=== PATIENT | female | born 1965 | race Caucasian/White ===

== ENCOUNTER → 2018-09-24 10:29 | Outpatient (CLI) | payer OTHER, SELFPAY ==
--- NOTE | 2018-09-24 10:30 | MM_ITS ---
MM Dig screening mamm BI w/CAD CAD Screening COMPARISON: Digital mammograms with CAD 02/14/2016 and 09/07/2014 INDICATION: There is no personal or family history of breast cancer TECHNIQUE: Standard CC and MLO images were obtained. R2 CAD reviewed. FINDINGS: Scattered fibroglandular densities are seen throughout both breast on a background of fatty breast parenchyma. There are few scattered benign-appearing microcalcifications in each breast. There is no suspicious lesion and there are no suspicious microcalcifications. IMPRESSION: Fibrofatty parenchyma no suspicious lesion seen BI-RADS Category: 2 Benign Finding(s) RECOMMENDED FOLLOW-UP: 1YR - 1 YEAR FOLLOW-UP (A letter has been sent to the patient regarding results of the study.)
== END ==
PROVIDERS: PCP Family Medicine; Visit Provider Obstetrics & Gynecology
DX: Z12.31 Encounter for screening mammogram for malignant neoplasm of breast (principal)
CPT/HCPCS: 77067

== ENCOUNTER → 2019-05-15 12:30 | Outpatient (CLI) | payer BC, SELFPAY ==
--- NOTE | 2019-05-15 12:34 | XR_ITS ---
XR elbow RT min 3V HISTORY: ITS.REASON: RT ELBOW PAIN ORDERING PHYSICIAN: Yareli Phelps APRN PATIENT AGE: 54 years COMPARISON: None FINDINGS: BONY STRUCTURES: No fracture or dislocation. No lytic or blastic change. Normal mineralization. SOFT TISSUES: Unremarkable. No radio opaque foreign bodies. No displaced fat pad. JOINT SPACE: Well-preserved. No significant arthritic changes evident. IMPRESSION: Negative elbow.
== END ==
PROVIDERS: PCP Nurse Practitioner Family; Visit Provider Nurse Practitioner Family
DX: M25.521 Pain in right elbow (principal)
CPT/HCPCS: 73080

== ENCOUNTER → 2020-01-01 09:54 | Outpatient (CLI) | payer BC, SELFPAY ==
--- NOTE | 2020-01-01 09:55 | MM_ITS ---
PROCEDURE: MM DIG SCREENING MAMM BI W/CAD CLINICAL INDICATION: screening xmg There is no personal or family history of breast cancer COMPARISON: [facility] DIG MAMM-SCREEN KEY from 09/07/2014 [facility] DIG MAMM-SCREEN KEY from 02/14/2016 [facility] MM Dig screening mamm BI w/CAD from 09/24/2018 TECHNIQUE: Standard CC and MLO images and 3D Tomosynthesis was obtained. R2 CAD reviewed. FINDINGS: The breasts are composed primarily of fat with scattered fibroglandular densities throughout both breasts and the findings are bilateral and symmetrical. There are few scattered benign-appearing microcalcifications in each breast. There is scattered faint arterial calcification in each breast. There is a tiny smoothly marginated density upper-outer quadrant right breast best demonstrated on paul images and likely representing a microcyst. There is no suspicious lesion and no suspicious microcalcifications. IMPRESSION: Fibrofatty parenchyma with no suspicious lesions seen BI-RAD Category: 2 Benign Finding(s) FOLLOW-UP: 1YR 1 Year Follow-up (A letter has been sent to the patient regarding results of the study.) Dictated by: Dr. Himanshu Lei MD 01/03/2020 09:[address] Himanshu Lei MD in [place] 01/03/2020 09:22
== END ==
PROVIDERS: PCP Nurse Practitioner Family; Visit Provider Nurse Practitioner Obstetrics & Gynecology
DX: Z12.31 Encounter for screening mammogram for malignant neoplasm of breast (principal)
CPT/HCPCS: 77063; 77067

== ENCOUNTER → 2020-04-02 11:21 | Outpatient (CLI) | payer BC, SELFPAY ==
--- NOTE | 2020-04-02 11:27 | XR_ITS ---
PROCEDURE: XR FOOT LT MIN 3V Patient Age:54Y CLINICAL INDICATION: LEFT FOOT PAIN , PLANTAR FASCIITIS Pain with walking or being on foot all day. COMPARISON: No exams were available for comparison No previous FINDINGS: Left foot intact no fracture or dislocation. No lytic or blastic change. There is normal mineralization.. The toes appear intact. The joint spaces are well-preserved. No significant degenerative/arthritic changes. No erosive changes evident. The lateral view shows satisfactory appearance to the calcaneus. No plantar calcaneal spur. No soft tissue calcifications or foreign bodies evident with particular attention to the plantar aspect of foot. . Adequate plantar arch. Joint spaces well maintained at the tarsals and throughout the foot, normal relationships. IMPRESSION: Left foot intact. The No fracture. No acute findings No calcaneal spur. No radiographic findings along the plantar aspect foot/plantar fascia Dictated by: Red Carrion MD 04/04/2020 08:23 Electronically signed by Red Carrion MD in [place] 04/04/2020 08:23
== END ==
PROVIDERS: PCP Nurse Practitioner Family; Visit Provider Nurse Practitioner Family
DX: M79.672 Pain in left foot (principal); M72.2 Plantar fascial fibromatosis
CPT/HCPCS: 73630

== ENCOUNTER → 2020-06-16 07:19 | Outpatient (CLI) | payer BC, SELFPAY ==
[2020-06-16 11:25] LABS: Coronavirus 19 IgG Antibody Negative (Negative); Coronavirus 19 IgM Antibody Negative (Negative)
== END ==
PROVIDERS: Visit Provider Internal Medicine Gastroenterology
DX: Z01.818 Encounter for other preprocedural examination (principal); Z12.11 Encounter for screening for malignant neoplasm of colon
CPT/HCPCS: 36415; 86328

== ENCOUNTER 2020-06-17 07:17 | Day surgery (SDC) | payer BC, SELFPAY ==
[2020-06-09 14:50] VITALS: BMI 37.8
[2020-06-17 07:41] VITALS: BP 146/77; PULSE 79; RESP 18; TEMP 36.4; O2SAT 98
[2020-06-17 08:29] VITALS: O2SAT 97
--- NOTE | 2020-06-17 08:30 | HMH.PROC ---
[facility] Procedure Note Procedure Note:: Colonoscopy Procedure Report: Colonoscopy Endoscopist: Doug Morel II, MD Referring physician: Brenden Watson MD Date of Procedure: June 17, 2020 Equipment: Olympus 180 variable stiffness pediatric colonoscope Sedation: MAC sedation Indication: Mrs. Rael is a 55-year-old female who is here for follow-up surveillance colonoscopy secondary to a personal history of colon polyps. She did have a colonoscopy in September 2016 and had 4 colon polyps (tubular adenomas x4) which were removed. She does have a history of IBS with constipation in the past. She reports no abdominal pain, weight loss, change in her bowel habits or rectal bleeding. She reports no family history of colon cancer. Procedure: Prior to the procedure, a history and physical exam was performed, and patient's medications and allergies were reviewed. The risks, benefits and alternatives of the sedation and procedure were discussed with the patient. All questions were answered and informed consent was obtained. The patient was brought to the procedure room. Patient identification and proposed procedure were verified by the physician and the nurse. The patient was placed in a left lateral decubitus position and the scope was passed under direct vision. Throughout the procedure, the patient's blood pressure, pulse, and oxygen saturations were monitored continuously. The colonoscopy was accomplished without difficulty. The patient tolerated the procedure well. Findings: On digital rectal examination there was normal rectal tone. There were no external hemorrhoids. The colonoscope was introduced through the anal canal to the rectum and advanced to the cecum. The ileocecal valve and appendiceal orifice were identified. The scope was advanced a short distance into the ileum which appeared grossly normal. The scope was then withdrawn into the colon. The cecum, ascending, transverse, descending, sigmoid and rectum were grossly normal. There was very mild left-sided diverticulosis. There were no mucosal abnormalities identified. Upon retroflexion within the rectum there were grade 1 internal hemorrhoids.The preparation was excellent throughout with Falcon Preparation Score of 9. The cecal time was 8 minutes. Impression: 1. Mild left-sided diverticulosis 2. Grade 1 internal hemorrhoids Plan: The patient will not require surveillance colonoscopy again for 10 years by ACS guidelines. I would encourage bulk fiber supplementation or fiber bowel regimen on a long-term daily maintenance basis.
--- NOTE | 2020-06-17 08:43 | P.PN_ITS ---
[facility] Anesthesia Checklist - Patient Identification Patient Identification: Arm Band - Structural Data Admitted From: Home Planned Operative Procedure/s: colonoscopy Consent for Planned Operative Procedure(s) Verified: Yes Verified Documents: Surgical Consent, History and Physical - NPO Status Verified Time NPO: 00:00 - Additional verifications Anesthesia Reactions: No - Airway Assessment C-Spine Mobility Assessed: Yes (mp2) TMJ Mobility Assessed: Yes Dentition: Good Dentition - Neurological Assessment Level of Consciousness: Awake, Alert - Anesthesia Plan Anesthesia Risk discussed: Yes Anesthesia Plan: Verified ASA Class: II Anesthesia Type: MAC [facility] History I have reviewed the patient's past medical history: Yes Medical History: Reports:: Hypertension Denies:: Cancer, Diabetes Mellitus Type 1, Diabetes Mellitus Type 2, Internal Pacemaker, MRSA, Seizures *Have you ever received a pneumonia vaccine?: No *Have you received a flu vaccine this season?: No Other Medical History: Reports: Other Anesthesia experience/problems:: nac Other Surgeries: Yes: , Hysterectomy-Partial, Other. No: Pacemaker Amputation: No Fractures: No - *Social History Last grade of school completed: High school graduate Smoking Status: Never smoker Alcohol Intake: never Substance Use Type: denies use *Occupational Status:: employed Housing: house Household Members: spouse *Travel in the last 8 weeks: None Family Hx:: Hypertension, Kidney Disease, Diabetes, Cancer
[2020-06-17 08:52] VITALS: BP 106/61; PULSE 71; RESP 20; TEMP 36.2; O2SAT 96
[2020-06-17 09:02] VITALS: BP 118/80; PULSE 66; RESP 18; TEMP 36.2; O2SAT 98
[2020-06-17 09:12] VITALS: BP 118/73; PULSE 63; RESP 20; TEMP 36.2; O2SAT 96
[2020-06-17 09:25] VITALS: BP 121/68; PULSE 63; RESP 20; TEMP 36.2; O2SAT 96
== END 2020-06-17 09:25 | disposition home or self-care (01) ==
LOC: OUTP 07:21
PROVIDERS: PCP Family Medicine; Visit Provider Internal Medicine Gastroenterology
PROC: 0DJD8ZZ Inspection of Lower Intestinal Tract, Via Natural or Artificial Opening Endoscopic (ICD-10-PCS; CPT 45378; principal; 2020-06-17 08:30)
DX: Z12.11 Encounter for screening for malignant neoplasm of colon (principal); Z86.010 Personal history of colon polyps; Z87.19 Personal history of other diseases of the digestive system; K57.30 Diverticulosis of large intestine without perforation or abscess without bleeding; K64.0 First degree hemorrhoids; I10 Essential (primary) hypertension; Z82.49 Family history of ischemic heart disease and other diseases of the circulatory system; Z90.710 Acquired absence of both cervix and uterus; Z79.899 Other long term (current) drug therapy
CPT/HCPCS: 45378

== ENCOUNTER 2020-08-28 02:45 | Emergency (ER) | payer BC, SELFPAY ==
[2020-08-28 02:55] VITALS: BP 128/57; PULSE 71; RESP 18; TEMP 36.6; O2SAT 98; BMI 39.4
--- NOTE | 2020-08-28 03:00 | XR_ITS ---
PROCEDURE: XR CHEST 2V Referring Doctor: Deo Cochran Patient Age:55Y CLINICAL HISTORY: abdominal pain epigastric pain RT upper quadrant pain extends to the back. Nausea. COMPARISON: CR CXR CHEST(2 VIEWS-NOT PORTABLE) from 11/20/2013 FINDINGS: Today's PA and lateral chest is compared to previous November 2013 CXR. No significant new findings. No interval change but the slight accentuation markings right infrahilar region and medial right base is similar to previous studies but unchanged. No pneumothorax but no pleural effusion. No active disease. The chest wall in T-spine appear stable. Unremarkable.. Heart is normal in size with normal upper normal pulmonary vascularity. .. IMPRESSION: Stable chest with nothing definitely acute. Lungs clear Dictated by: Red Carrion MD 08/28/2020 17:20 Red Carrion MD in [place] 08/28/2020 17:20
--- NOTE | 2020-08-28 03:00 | ECG_ITS ---
APPROVED REPORT Exam: Resting ECG HR:65 bpm ECG Measurements Heart Rate 65 AXES NC 126 P 55 QRSd 84 QRS 51 QT 388 T 17 QTc 403 Conclusion Normal sinus rhythm-normal ECG Electronically signed by : Braydon Kim, 08/28/2020 14:17:08
--- NOTE | 2020-08-28 03:00 | CT_ITS ---
Procedure: CT ABDOMEN PELVIS W CON Referring Doctor: Deo Cochran Patient Age:55Y CLINICAL INDICATION: abd pain Right upper quadrant abdominal pain with nausea. COMPARISON: US ABD US ABD(COMPLETE-MULTI ORGANS from 01/06/2016 TECHNIQUE: 75 cc Optiray 350 IV contrast utilized Helical axial images obtained with sagittal and coronal reformats. All CT scans at the facility use one or more dose reduction, viz: automated exposure control, ma/kV adjustment per patient size (including targeted exams where dose is matched to indication, i.e. head), or iterative reconstruction technique. FINDINGS: Lower thorax: No acute finding ABDOMEN: Liver: Unremarkable. No masses or biliary dilatation. Gallbladder: , Suspect small gallstone towards, towards neck of gallbladder axial image 35 coronal 31 sagittal 50 gallbladder is not distended and there is no wall thickening this suspect stone is fairly far into the neck of the gallbladder and may be difficult to visualize by ultrasound but would recommend gallbladder ultrasound follow-up, particularly given the right upper quadrant symptoms. The common duct appears normal in diameter with no calculi along the course of the common duct The pancreas appears satisfactory. Pancreas: No masses or peripancreatic fluid collections. Spleen: unremarkable Normal to upper normal size Adrenals: . no significant findings.. tract-------kidneys/ureters: Unremarkable PELVIS:. Bladder appears satisfactory. Uterus is been removed. No adnexal masses no free fluid GI tract. Appendix well visualized and normal. Large bowel: Liquid stool at the right and transverse colon with air-fluid levels in these regions which could reflect developing diarrhea of a possibly reflect developing a enteritis. [id number]-[id number] solid stool throughout remainder of the left colon, sigmoid to rectum. The small bowel appears normal with upper normal fluid throughout. No dilatation. Terminal ileum unremarkable but stomach unremarkable as is duodenal loop Peritoneum: No abnormal fluid collections. No obvious inflammatory changes. No free air. Lymph nodes: No enlarged lymph nodes apparent. Vasculature: No evidence of abdominal aortic aneurysm. No retroperitoneal findings.. Bones: No acute fracture IMPRESSION: Suspect small stone far into the neck gallbladder-recommend gallbladder ultrasound in follow-up. Liquid stool throughout the right and transverse colon-could reflect developing diarrhea/enteritis. Dictated by: Red Carrion MD 08/28/2020 16:02 Red Carrion MD in [place] 08/28/2020 16:02
[2020-08-28 03:03] LABS: Microscopic, Urine URINE MICROSCOPIC (MICROSCOPIC)
[2020-08-28 03:04] LABS: Appearance,Urine CLOUDY (Clear); Bilirubin,Urine Negative (Negative); Blood, Urine Negative (Negative); Color,Urine YELLOW (Yellow); Glucose,Urine (UA) Negative (Negative); Ketones,Urine Negative (Negative); Leukocyte Esterase,Urine Negative (Negative); Nitrate,Urine POSITIVE (Negative); PH,Urine 5.5 (5.0-8.5); Protein,Urine Negative (Negative); Specific Gravity, Urine >= 1.030 (1.005-1.030)
[2020-08-28 03:06] LABS: Bacteria,Urine 2+ /lpf; Squamous Epithelial Cell,Urine 20-50 #/hpf (0-5)
[2020-08-28 03:17] LABS: Basophils % 0.7 % (0.1-2.0); Eosinophils # 0.1 K/mm3 (0.0-0.4); Eosinophils % 2.5 % (0.1-12.0); Hematocrit 38.9 % (37.0-47.0); Hemoglobin 12.1 g/dL (12.2-16.2); Lymphocytes # 2.2 K/mm3 (0.7-4.5); Lymphocytes % 37.9 % (10-50); Mean Corpuscular HGB Conc 31.1 g/dL (31.8-35.4); Mean Corpuscular Hemoglobin 27.8 pg (27.0-31.2); Mean Corpuscular Volume 89.3 fl (81-99); Mean Platelet Volume 6.9 fl (7.4-10.4); Monocytes # 0.3 K/mm3 (0.1-1.0); Monocytes % 4.8 % (1.7-9.3); Neutrophils # 3.1 K/mm3 (1.8-7.8); Neutrophils % 54.1 % (37.0-80.0); Platelet Count 342 K/mm3 (142-424); Red Blood Count 4.36 M/mm3 (4.20-5.40); Red Cell Distribution Width 14.7 % (11.5-17.5); White Blood Count 5.7 K/mm3 (4.8-10.8)
[2020-08-28 03:26] LABS: Alanine Aminotransferase 21 U/L (12-78); Albumin Level 3.8 g/dl (3.5-5.0); Alkaline Phosphatase 126 U/L (38-126); Amylase 84 U/L (30-110); Anion Gap 10.9 mEq/L (5-15); Aspartate Amino Transferase 39 U/L (14-36); Bilirubin,Direct 0.1 mg/dl (0.0-0.4); Bilirubin,Indirect 0.1 mg/dL (0.0-0.9); Bilirubin,Total 0.2 mg/dl (0.2-1.3); Bilirubin,Unconjugated 0.1 mg/dL (0.0-1.1); Blood Urea Nitrogen 13 mg/dl (7-17); Calcium 9.2 mg/dl (8.4-10.2); Carbon Dioxide 26 mmol/L (22.0-30.0); Chloride 108 mmol/L (98-107); Creatinine Clearance Estimated 132 mL/min (50-200); Estimated Glomerular Filt Rate 75 ml/min (>60); GFR (African American) 90 ML/MIN (>60); Glucose 122 mg/dl (74-100); Lipase 102 U/L (23-300); Potassium 3.9 mmoL/L (3.5-5.1); Sodium 141 mmol/L (136-145); Total Protein,Serum 6.7 g/dl (6.3-8.2)
[2020-08-28 03:38] LABS: Troponin I < 0.01 ng/ml (0.00-0.034)
--- NOTE | 2020-08-28 04:49 | HMH.EDNVD ---
ED Disposition Clinical Impression: Abdominal pain Qualifiers: Abdominal location: right upper quadrant Qualified Code(s): R10.11 - Right upper quadrant pain Disposition: Home, Self-Care Condition on Discharge: Good Instructions: DI for Acute Abdomen Additional Instructions: call pcp about more testing and urine culture results on saturday Referrals: Brenden Watson MD [Primary Care Provider] - - Critical Care Critical Care Time: No Attestation: On 08/28/20, the high probability of a clinically significant, sudden or life threatening deterioration of the following system(s) required my full and direct attention, intervention and personal management. The time I documented below is in addition to time spent performing reported procedures but includes the following listed in this critical care notation. Medical Decision Making - Medical Records Medical records reviewed: Yes: I reviewed the patient's medical records. - [place] Inquiry Pt receiving controlled substance: No Vital Signs: 08/28/20 02:55 Temperature 97.8 F Temperature Source Oral Pulse Rate [Right Brachial] 71 Respiratory Rate 18 Blood Pressure [Right Arm] 128/57 L Blood Pressure Mean [Right Arm] 80 Blood Pressure Source [Right Arm] Automatic Cuff Blood Pressure Position [Right Arm] Sitting 02 Sat by Pulse Oximetry 98 Oxygen Delivery Method Room Air - Lab Data Lab results reviewed: Yes: I reviewed the patient's lab results. Lab Results 08/28/20 02:58: Urine Color Yellow, Urine Appearance Cloudy, Urine pH 5.5, Ur Specific [place] >= 1.030, Urine Protein Negative, Urine Glucose (UA) Negative, Urine Ketones Negative, Urine Blood Negative, Urine Nitrate Positive, Urine Bilirubin Negative, Urine Urobilinogen 1.0, Ur Leukocyte Esterase Negative, Ur Squamous Epith Cells 20-50, Urine Bacteria 2+ 08/28/20 03:03: WBC 5.7, RBC 4.36, Hgb 12.1 L, Hct 38.9, MCV 89.3, MCH 27.8, MCHC 31.1 L, RDW 14.7, Plt Count 342, MPV 6.9 L, Neut % (Auto) 54.1, Lymph % (Auto) 37.9, [place] % (Auto) 4.8, Eos % (Auto) 2.5, Baso % (Auto) 0.7, Neut # (Auto) 3.1, Lymph # (Auto) 2.2, [place] # (Auto) 0.3, Eos # (Auto) 0.1, Baso # (Auto) 0.0 08/28/20 03:03: Sodium 141, Potassium 3.9, Chloride 108 H, Carbon Dioxide 26, Anion Gap 10.9, BUN 13, Creatinine 0.80, Estimated Creat Clear 132, Estimated GFR 75, Est GFR ( Amer) 90, Glucose 122 H, Calcium 9.2, Total Bilirubin 0.2, Direct Bilirubin 0.1, Conjugated Bilirubin 0.0, Indirect Bilirubin 0.1, Unconjugated Bilirubin 0.1, AST 39 H, ALT 21, Alkaline Phosphatase 126, Troponin I < 0.01, Total Protein 6.7, Albumin 3.8, Amylase 84, Lipase 102 Result diagrams: 08/28/20 03:03 08/28/20 03:03 Orders (Tests/Meds): ED MEDICATIONS Generic Name Dose Route Start Last Admin Trade Name Freq PRN Reason Stop Dose Admin Sodium Chloride 1,000 mls @ 999 mls/hr 08/28/20 03:15 08/28/20 03:36 Sod Chlor 0.9% 1000ml Bag IV 08/28/20 04:15 999 mls/hr .Q1H1M DELIA Administration Sodium Chloride 8 ml 08/28/20 03:01 Sodium Chloride 0.9% 10ml Vial IV 09/27/20 03:00 NEEDED PRN dilute pepcid Discontinued Medications Generic Name Dose Route Start Last Admin Trade Name Freq PRN Reason Stop Dose Admin Famotidine 20 mg 08/28/20 03:01 08/28/20 03:37 Famotidine 20mg/2ml Vial IV 08/28/20 03:02 20 mg ONCE ONE Administration Ketorolac Tromethamine 30 mg 08/28/20 03:01 08/28/20 03:36 Ketorolac 30mg/Ml Vial IV 08/28/20 03:02 30 mg ONCE ONE Administration Metoclopramide HCl 10 mg 08/28/20 03:01 08/28/20 03:37 Metoclopramide Hcl 10mg/2ml Vial IVP 08/28/20 03:02 10 mg ONCE ONE Administration ORDERS Category Date Time Status CT abdomen pelvis w con Stat Cat Scan 08/28/20 03:00 Taken Chest XR 2 view (NOT portable) [XR chest 2V] Stat Exams 08/28/20 03:00 Taken Troponin I Q3H Lab 08/28/20 06:00 Ordered Troponin I Q3H Lab 08/28/20 09:00 Ordered Urine Culture Stat Micro 08/28/20 02:58 Received
[2020-08-28 05:39] VITALS: BP 114/97; PULSE 50; RESP 15; TEMP 36.8; O2SAT 98
== END 2020-08-28 05:41 | disposition home or self-care (01) ==
PROVIDERS: Emergency Provider Emergency Medicine; PCP Family Medicine
DX: R10.11 Right upper quadrant pain (principal); R10.13 Epigastric pain; I10 Essential (primary) hypertension
CPT/HCPCS: 71046; 74177; 80048; 80076; 81001; 82150; 83690; 84484; 85025; 87086; 87088; 87186; 93005; 96365; 96375; 99283; Q9967

== ENCOUNTER → 2020-09-12 09:00 | Outpatient (CLI) | payer BC, SELFPAY ==
--- NOTE | 2020-09-12 09:07 | US_ITS ---
PROCEDURE: US ABDOMEN LIMITED CLINICAL INDICATION: RUQ PAIN Possible gallstones as seen on recent CT scan COMPARISON: US ABD US ABD(COMPLETE-MULTI ORGANS from 01/06/[address] ABDOMEN PELVIS W CON from 08/28/2020 FINDINGS: PANCREAS: Unremarkable. No obvious mass or abnormal fluid collection. No ductal dilatation LIVER: No focal liver lesions demonstrated. Homogeneous echogenicity. No intrahepatic biliary ductal dilatation evident. There is appropriate direction of blood flow within a non dilated portal vein RIGHT KIDNEY: Unremarkable. Normal size and echogenicity. No hydronephrosis GALLBLADDER: There are gallstones present with stone noted measuring up to 1.5 cm. No gallbladder wall thickening, pericholecystic fluid, or biliary dilatation. Common bile duct is 4 mm. IMPRESSION: Cholelithiasis Dictated by: Darren Scott MD 09/12/2020 10:40 Darren Scott MD in [place] 09/12/2020 10:40
== END ==
PROVIDERS: PCP Family Medicine; Visit Provider Family Medicine
DX: R10.11 Right upper quadrant pain (principal)
CPT/HCPCS: 76705

== ENCOUNTER → 2020-10-19 09:53 | Outpatient (CLI) | payer BC, SELFPAY ==
[2020-10-19 10:45] LABS: Basophils % 0.5 % (0.1-2.0); Eosinophils # 0.1 K/mm3 (0.0-0.4); Eosinophils % 1.2 % (0.1-12.0); Hematocrit 42.6 % (37.0-47.0); Hemoglobin 13.6 g/dL (12.2-16.2); Lymphocytes # 1.7 K/mm3 (0.7-4.5); Lymphocytes % 27.3 % (10-50); Mean Corpuscular HGB Conc 31.8 g/dL (31.8-35.4); Mean Corpuscular Hemoglobin 28.1 pg (27.0-31.2); Mean Corpuscular Volume 88.4 fl (81-99); Mean Platelet Volume 7.5 fl (7.4-10.4); Monocytes # 0.3 K/mm3 (0.1-1.0); Monocytes % 4.4 % (1.7-9.3); Neutrophils % 66.5 % (37.0-80.0); Platelet Count 415 K/mm3 (142-424); Red Blood Count 4.82 M/mm3 (4.20-5.40); Red Cell Distribution Width 14.2 % (11.5-17.5); White Blood Count 6.1 K/mm3 (4.8-10.8)
[2020-10-19 12:10] LABS: Chloride 105 mmol/L (98-107); Sodium 140 mmol/L (136-145)
[2020-10-19 12:13] LABS: Alanine Aminotransferase 15 U/L (12-78); Albumin Level 4.2 g/dl (3.5-5.0); Albumin/Globulin Ratio 1.6 (1.1-1.8); Alkaline Phosphatase 90 U/L (38-126); Aspartate Amino Transferase 19 U/L (14-36); Bilirubin,Total 0.4 mg/dl (0.2-1.3); Blood Urea Nitrogen 13 mg/dl (7-17); Carbon Dioxide 29 mmol/L (22.0-30.0); Estimated Glomerular Filt Rate 65 ml/min (>60); GFR (African American) 79 ML/MIN (>60); Globulin 2.6 g/dL (1.3-3.2); Total Protein,Serum 6.8 g/dl (6.3-8.2)
[2020-10-19 12:14] LABS: Glucose 98 mg/dl (74-100)
[2020-10-19 12:29] LABS: Coronavirus 19 IgG Antibody Negative (Negative); Coronavirus 19 IgM Antibody Negative (Negative)
== END ==
PROVIDERS: Visit Provider Surgery
DX: Z01.818 Encounter for other preprocedural examination (principal); K80.20 Calculus of gallbladder without cholecystitis without obstruction
CPT/HCPCS: 36415; 80053; 85025; 86328

== ENCOUNTER 2020-10-21 06:06 | Day surgery (SDC) | payer BC, SELFPAY ==
[2020-10-19 10:07] VITALS: BMI 39.4
[2020-10-21] VITALS (12 sets, daily range): BP systolic 122–142; BP diastolic 59–76; PULSE 63–81; RESP 16–20; TEMP 36.4–43; O2SAT 91–99
--- NOTE | 2020-10-21 07:11 | HMH.ANESCL ---
[facility] Anesthesia Checklist - Patient Identification Patient Identification: Arm Band - Structural Data Admitted From: Home Planned Operative Procedure/s: laparoscopic cholecystectomy Consent for Planned Operative Procedure(s) Verified: Yes Verified Documents: Surgical Consent, History and Physical - NPO Status Verified Time NPO: 00:00 - Additional verifications Anesthesia Reactions: No Hx Blood Transfusions: No Blood Transfusion Reaction: No - Airway Assessment C-Spine Mobility Assessed: Yes (mp2) TMJ Mobility Assessed: Yes Dentition: Edentulous - Neurological Assessment Level of Consciousness: Awake, Alert - Anesthesia Plan Anesthesia Risk discussed: Yes Anesthesia Plan: Verified ASA Class: II Anesthesia Type: General [facility] History I have reviewed the patient's past medical history: Yes Medical History: Reports:: Anxiety, Hypertension Denies:: Cancer, Diabetes Mellitus Type 1, Diabetes Mellitus Type 2, Internal Pacemaker, MRSA, Seizures *Have you ever received a pneumonia vaccine?: No *Have you received a flu vaccine this season?: No Other Medical History: Reports: Other. Denies: Blood Transfusion Reaction Anesthesia experience/problems:: nac Laterality Cases: Right: Carpal Tunnel Release Other Surgeries: Yes: Colonoscopy, , Hysterectomy-Partial, Other. No: Pacemaker Amputation: No Fractures: No - *Social History Smoking Status: Former smoker Alcohol Intake: never Substance Use Type: denies use *Occupational Status:: employed Housing: house Household Members: spouse *Travel in the last 8 weeks: None Family Hx:: No significant family history
--- NOTE | 2020-10-21 08:12 | HMH.OPNOTE ---
Date of procedure: 10/21/20 Pre-op Diagnosis:: Symptomatic cholelithiasis Post-op Diagnosis:: Chronic calculus cholecystitis Procedure performed:: Laparoscopic cholecystectomy Surgeon:: Aguilar James MD HARDWARE DESIGN ENGINEER:: Brenden Elam Anesthesia: GETA Estimated blood loss (mL): 15 Operative findings:: Significant pericholecystic fat stranding Operative note:: After informed consent was obtained, the patient was taken to the operating room and placed in the supine position. General anesthesia was induced and the abdomen was prepped and draped in a sterile fashion. After infiltration with local anesthetic an infraumbilical incision was made. A Veress needle was placed in position. The abdomen was insufflated. A 5 mm optical trocar was placed in position. Under direct visualization, a 12 mm trocar was placed in the subxiphoid position and 2 additional 5 mm trocars were placed in the right upper quadrant. The gallbladder was elevated up and over the liver margin. The tissue around the cystic duct was carefully dissected. 3 clips were placed proximally and the duct was transected with harmonic alis. Harmonic alis were then utilized to dissect the gallbladder away from the liver margin with careful attention to the control of the cystic artery. The gallbladder was placed in a retrieval bag and removed through the subxiphoid trocar site. The right upper quadrant was thoroughly irrigated. No active bleeding or bile leak was noted. Fascia at the subxiphoid trocar site was reapproximated utilizing the NeoClose device. The remaining trocars were removed. All wounds were irrigated and skin was closed with 4-0 Monocryl in a subcuticular fashion. Steri-Strips were applied. The patient's anesthetic agents were reversed and extubation was completed prior to transfer to recovery in stable condition. Condition: stable Disposition: PACU Specimens:: Gallbladder Complications:: No immediate
--- NOTE | 2020-10-21 08:22 | HMH.ANESI ---
[facility] Anesthesia Record Part I Intake, IV Amount: 500 Estimated blood loss (mL): 10 Urine output (mL): 0 Blood Products used (#): none Blood Pressure: 138/76 SaO2: 91 Pulse Rate: 79 Respiratory Rate: 20 Temperature: 97.5 F Patient is:: Drowsy, Stable Stable to PACU at:: 08:21
--- NOTE | 2020-10-21 09:29 | PC.NURSE ---
0844-pt eating ice chips w/out difficulty at this time, denies nausea 0849-detailed report called to Tameka,RN 0851-pt transported to post op via stretcher w/amilcar rails up and left in care of SVITLANA Hodges, detailed report given at bedside, vss, pt stable
--- NOTE | 2020-10-21 10:00 | P.PN_ITS ---
[facility] Anesthesia Record Part II Discharge Time: 08:51 Destination: Surgical Day Care (OP Surgery) PACU nurse assessment reviewed?: Yes Patient Condition:: Good Anesthesia Complications:: None Swallowing reflex intact?: Yes Cyanosis?: No Blood Pressure: 123/68 Pulse Rate: 74 Temperature: 97.9 F Mental Status: Alert & Oriented Pain level:: 4 Nausea and/or vomitting:: None Intake, IV Amount: 50
== END 2020-10-21 09:31 | disposition home or self-care (01) ==
PROVIDERS: PCP Family Medicine; Visit Provider Surgery
PROC: 0FT44ZZ Resection of Gallbladder, Percutaneous Endoscopic Approach (ICD-10-PCS; CPT 47562; principal; 2020-10-21 07:30)
DX: K80.10 Calculus of gallbladder with chronic cholecystitis without obstruction; I10 Essential (primary) hypertension; F41.9 Anxiety disorder, unspecified; Z87.39 Personal history of other diseases of the musculoskeletal system and connective tissue
CPT/HCPCS: 47562; 96374; J2710

== ENCOUNTER → 2021-06-29 07:42 | Outpatient (CLI) | payer BC, SELFPAY ==
--- NOTE | 2021-06-29 07:42 | MM_ITS ---
PROCEDURE: MM DIG SCREENING MAMM BI W/CAD Digital Breast Tomosynthesis Included CLINICAL INDICATION: screening xmg COMPARISON: MG DMSB DIG MAMM-SCREEN KEY from 02/14/2016 [facility] MM Dig screening mamm BI w/CAD from 09/24/2018 MG MM DIG SCREENING MAMM BI W/CAD from 01/01/2020 TECHNIQUE: Standard CC and MLO images and 3D Tomosynthesis was obtained. R2 CAD reviewed. FINDINGS: Mostly fatty replaced fibroglandular tissue. There are bilateral benign-appearing calcifications with a few scattered areas of asymmetry felt to be related to fibroglandular tissue. No malignant appearing mass or malignant-appearing microcalcification. No architectural distortion or skin thickening. IMPRESSION: Benign findings. BI-RAD Category: 2 Benign Finding FOLLOW-UP: 1 YR 1 Year Follow-up (A letter has been sent to the patient regarding results of the study.) Dictated by: Darren Scott MD 07/06/2021 09:28 Darren Scott MD in [place] 07/06/2021 09:28
== END ==
PROVIDERS: PCP Family Medicine; Visit Provider Nurse Practitioner Obstetrics & Gynecology
DX: Z12.31 Encounter for screening mammogram for malignant neoplasm of breast (principal)
CPT/HCPCS: 77063; 77067

== ENCOUNTER 2021-11-09 04:14 | Emergency (ER) | payer OTHER, SELFPAY ==
[2021-11-09 04:17] VITALS: BP 141/71; PULSE 77; RESP 16; TEMP 37.1; O2SAT 98; BMI 39.3
--- NOTE | 2021-11-09 04:35 | XR_ITS ---
PROCEDURE INFORMATION: Exam: XR Left Ankle Exam date and time: 11/09/2021 4:35 AM Age: 56 years old Clinical indication: Pain; Ankle; Left; Additional info: Injury TECHNIQUE: Imaging protocol: XR Left ankle. Views: 3 or more views. COMPARISON: CR XR FOOT LT MIN 3V 04/02/2020 11:28 AM FINDINGS: Bones/joints: Incomplete horizontal fracture through the lateral malleolus with 1 mm of displacement of the lateral cortex. No other fracture is present. The joints are well aligned. Soft tissues: Normal. IMPRESSION: 1. Incomplete horizontal fracture through the lateral malleolus with 1 mm of displacement of the lateral cortex. 2. No other fracture is present. The joints are well aligned.
--- NOTE | 2021-11-09 04:40 | HMH.EDLOEX ---
ED Disposition Clinical Impression: Lateral malleolar fracture Qualifiers: Encounter type: initial encounter Fracture type: closed Fracture alignment: nondisplaced Laterality: left Qualified Code(s): S82.65XA - Nondisplaced fracture of lateral malleolus of left fibula, initial encounter for closed fracture Disposition: Home, Self-Care Condition on Discharge: Good Instructions: Ankle Fracture Additional Instructions: no wt bearing and see pcp and ortho or podiatry for follow up Referrals: Brenden Watson MD [Primary Care Provider] - Kaur Pittman DPM [Staff Physician] - Bhaskar Holder MD [Staff Physician] - Patel Fragoso JR, MD [Physician] - - Critical Care Critical Care Time: No Attestation: On , the high probability of a clinically significant, sudden or life threatening deterioration of the following system(s) required my full and direct attention, intervention and personal management. The time I documented below is in addition to time spent performing reported procedures but includes the following listed in this critical care notation. Medical Decision Making - Medical Records Medical records reviewed: Yes: I reviewed the patient's medical records. - Wayne Inquiry Pt receiving controlled substance: No Vital Signs: 11/09/21 04:17 Temperature 98.7 F Temperature Source Oral Pulse Rate [Left] 77 Respiratory Rate 16 Blood Pressure [Right Arm] 141/71 H Blood Pressure Mean [Right Arm] 94 02 Sat by Pulse Oximetry 98 Oxygen Delivery Method Room Air - Lab Data Lab results reviewed: Yes: I reviewed the patient's lab results. Orders (Tests/Meds): ED MEDICATIONS Generic Name Dose Route Start Last Admin Trade Name Freq PRN Reason Stop Dose Admin Acetaminophen/Codeine Phosphate 1 connor 11/09/21 06:38 Acetaminophen 300mg W/Codeine 30mg Take Home Pack (6) PO 11/09/21 06:39 ONCE ONE - Radiology Data #1 Image(s): Ankle Image Reviewed: Yes I have reviewed radiologist's interpretation Preliminary Findings: Abnormal (see report ) Medical Decision Narrative: pt has nondisplaced fx lt lat mallelous and - workman comp form completed Lower Extremity Injury HPI - General Chief Complaint: Extremity Injury, Lower Stated Complaint: WC 11/09/2103:30 injury left ankle Time Seen by Provider: 11/09/21 04:25 Mode of Arrival: Ambulatory Source of Information: Patient, Medical Record Limitations: No Limitations Description of Symptoms (Recalled from ER Triage Doc. by RN): PT was at work at 3m and at 330 am she turned around and twisted her left ankle. pt reports pain 6/10 still but worse with activity - History of Present Illness HPI Narrative: acute injury to lt ankle at work - rotational injury - with pain and swelling and dec wt bearing complaint: ankle injury Onset (ago): hour(s) Injury: Left: ankle Type of Injury: inversion, other (rotation) Place: work Severity: moderate Exacerbating factors: weight bearing Associated symptoms: swelling, able to partially bear weight Other symptoms: none - Related Data Home Medications Medication Instructions Recorded Confirmed cholecalciferol (vitamin D3) 50 50 mcg PO DAILY 06/22/21 06/22/21 mcg (2,000 unit) capsule cyanocobalamin (vitamin B-12) 1,000 mcg PO DAILY 06/22/21 06/22/21 1,000 mcg capsule lisinopril 10 mg tablet 10 mg PO DAILY tab 06/22/21 11/09/21 Previous Rx's Medication Instructions Recorded fluoxetine 10 mg capsule 10 mg PO DAILY #30 cap 11/03/21 Allergies Allergy/AdvReac Type Severity Reaction Status Date / Time No Known Allergies Allergy Verified 06/22/21 08:36 [facility] History - Hepatitis A Screen Drug use history?: No High risk sexual behaviors?: No History of sexually transmitted infection?: No Currently employed?: No Childcare worker?: No Do you have indoor plumbing?: Yes Do you have electricity?: Yes Attestation statement:: This patient has been screened for Hepatitis A risk f
[2021-11-09 06:39] VITALS: BP 172/77; PULSE 88; RESP 16; TEMP 36.8; O2SAT 100
== END 2021-11-09 06:57 | disposition home or self-care (01) ==
PROVIDERS: Emergency Provider Emergency Medicine; PCP Family Medicine
DX: S82.65XA Nondisplaced fracture of lateral malleolus of left fibula, initial encounter for closed fracture (principal); X50.1XXA Overexertion from prolonged static or awkward postures, initial encounter; Y92.63 Factory as the place of occurrence of the external cause; Y99.0 Civilian activity done for income or pay; I10 Essential (primary) hypertension; F41.9 Anxiety disorder, unspecified
CPT/HCPCS: 73610; 99283

== ENCOUNTER 2021-11-09 10:11 | Outpatient (RCR) | payer OTHER, SELFPAY | END 2021-11-09 11:00 | disposition home or self-care (01) | LOC: PT 10:11 | PROVIDERS: Visit Provider Podiatrist | DX: S82.65XA Nondisplaced fracture of lateral malleolus of left fibula, initial encounter for closed fracture (principal) | CPT/HCPCS: 97760 ==

== ENCOUNTER → 2021-12-01 12:57 | Outpatient (CLI) | payer BC, SELFPAY | PROVIDERS: Visit Provider Nurse Practitioner | DX: U07.1 COVID-19 (principal) | CPT/HCPCS: C9803; U0003; U0005 ==

== ENCOUNTER → 2021-12-01 12:59 | Outpatient (CLI) | payer BC, SELFPAY | PROVIDERS: Visit Provider Nurse Practitioner | DX: Z20.822 Contact with and (suspected) exposure to COVID-19 (principal) ==

== ENCOUNTER → 2021-12-18 08:27 | Outpatient (CLI) | payer OTHER, SELFPAY ==
--- NOTE | 2021-12-18 08:34 | XR_ITS ---
FINAL REPORT CLINICAL HISTORY: fracture follow up COMPARISON: 11/09/2021 FINDINGS: LEFT ANKLE 3 views of the left ankle were obtained. Again seen is a fracture of the inferior tip of the lateral malleolus without to 2 mm distraction. No significant callus formation is seen. No other fracture is identified. There are mild degenerative changes. Lateral soft tissue swelling is noted. IMPRESSION: Fracture at the inferior tip of the lateral malleolus with 2 mm distraction and no significant callus formation seen. Reviewed, Interpreted and Dictated by Moises Sykes III, MD Transcribed by Janie Perez Authenticated by Moises Sykes III, MD on 12/18/2021 09:50:41 AM [facility]
== END ==
PROVIDERS: PCP Family Medicine; Visit Provider Podiatrist
DX: M25.572 Pain in left ankle and joints of left foot (principal); T14.8XXA Other injury of unspecified body region, initial encounter
CPT/HCPCS: 73610

== ENCOUNTER → 2022-01-15 09:31 | Outpatient (CLI) | payer OTHER, SELFPAY ==
--- NOTE | 2022-01-15 09:34 | XR_ITS ---
FINAL REPORT CLINICAL HISTORY: fracture evaluation COMPARISON: December 18, 2021 FINDINGS: LEFT ANKLE: Three views of the left ankle were obtained. Again noted is a transverse fracture of the lateral malleolus with mild distraction. Bony alignment is stable. There is no significant callus formation. There is persistent lateral soft tissue swelling. There is a calcification in the region of the distal Achilles tendon. IMPRESSION: Again noted fracture of the lateral malleolus with no significant callus formation. Reviewed, Interpreted and Dictated by Moises Sykes III, MD Transcribed by Aurea Cohen Authenticated by Moises Sykes III, MD on 01/15/2022 11:46:02 AM [facility]
== END ==
PROVIDERS: PCP Family Medicine; Visit Provider Podiatrist
DX: M25.572 Pain in left ankle and joints of left foot (principal); S82.832A Other fracture of upper and lower end of left fibula, initial encounter for closed fracture; S99.912A Unspecified injury of left ankle, initial encounter
CPT/HCPCS: 73610

== ENCOUNTER → 2022-02-26 10:29 | Outpatient (CLI) | payer OTHER, SELFPAY ==
--- NOTE | 2022-02-26 10:38 | XR_ITS ---
FINAL REPORT CLINICAL HISTORY: fracture evaluation COMPARISON: January 15, 2022 FINDINGS: LEFT ANKLE Three views demonstrate no acute fracture or dislocation. There is a persistent linear lucency in the inferior lateral malleolus. The fracture line is less well seen than previous which is probably due to interval healing. The visualized joint spaces are normally aligned. The soft tissues are unremarkable. IMPRESSION: Healing inferior lateral malleolus fracture. Reviewed, Interpreted and Dictated by Yousuf Dimas MD Transcribed by Aurea Cohen Authenticated by Yousuf Dimas MD on 02/26/2022 12:18:05 PM [facility]
== END ==
PROVIDERS: PCP Nurse Practitioner Family; Visit Provider Podiatrist
DX: M25.572 Pain in left ankle and joints of left foot (principal); S82.832A Other fracture of upper and lower end of left fibula, initial encounter for closed fracture
CPT/HCPCS: 73610

== ENCOUNTER → 2022-03-20 08:45 | Outpatient (CLI) | payer OTHER, SELFPAY ==
--- NOTE | 2022-03-20 08:50 | XR_ITS ---
FINAL REPORT TECHNIQUE: Bone mineral density was calculated of the lumbar spine and hip. CLINICAL HISTORY: . non healing fx FINDINGS: Using L1-4, the bone mineral density of the spine is 1.060 g/cm2, corresponding to T-score of 0.1. Note that this value may be falsely elevated secondary to hypertrophic change. Using the right hip, the bone mineral density of the femoral neck is 0.642 g/cm2, corresponding to a T-score of -1.9. NOTE: T-score: Standard deviation compared with peak bone mass of young adult mean. *Following the recommendations of the International Society of Bone densitometry, classification of hip BMD is based on the lower of two T-scores; total hip or femoral neck. IMPRESSION: Diminished bone mineral density of the right hip consistent with osteopenia. FRAX 10 year fracture risk is 12% for major osteoporotic fracture. Normal bone mineral density of the lumbar spine however, values may be falsely elevated secondary to hypertrophic change. Reviewed, Interpreted and Dictated by Moises Sykes III, MD Transcribed by Aurea Cohen Authenticated by Moises Sykes III, MD on 03/20/2022 12:40:50 PM [facility]
== END ==
PROVIDERS: PCP Family Medicine; Visit Provider Podiatrist
DX: M25.572 Pain in left ankle and joints of left foot (principal); S82.832A Other fracture of upper and lower end of left fibula, initial encounter for closed fracture; T14.8XXA Other injury of unspecified body region, initial encounter
CPT/HCPCS: 77080

== ENCOUNTER 2022-03-22 09:00 | Outpatient (RCR) | payer OTHER, SELFPAY ==
--- NOTE | 2022-01-10 15:38 | HMH.PTOPEV ---
PT Outpatient Evaluation Rehab PT Outpatient Evaluation Start: 01/10/22 14:45 Freq: Status: Active Protocol: Document 01/10/22 15:25 MARIA ACHAPIN (Rec: 01/10/22 15:37 CARMENCITA [id number]) Electronically Signed By Brain Rivera, PT 01/10/22 15:25 Outpatient Therapy Subjective History Subjective History Patient is a 56 year old female presenting to outpatient PT with reports of L foot/ankle pain. This is a workmans comp case. Patient report that she had her foot planted while she was turning around rolled her ankle resulting in a distal fibular fracture. Initial injury occurred 11/09/21 (2 months S/ P). Comorbidities include hx of HTN and cholecystectomy. Chief Complaint Pain,Stiff,Swelling,Weakness Symptom Type Ache Symptoms Relieved By Rest/Positioning,OTC Meds, Elevation Symptoms Aggravated By Standing,Physical Activity, Walking Prior Functional Limitations None Current Functional Limitations Housework,Standing,Squatting, Recreation Activity,Walking, Stairs,Balance Symptom Description Intermittent Level of pain today (0-10) 14 Pain scale - at its best (0-10) 0 Pain scale - at its worst (0-10) 4 Ankle/Foot Eval Gait Observation General Gait Pattern Observation Antalgic Gait,Decrease Weight Bear (L) Assistive Device Ambulation Assistive Device Axillary Crutches Palpation Tenderness left Ankle/Foot Palpation Findings Tenderness Ankle/Foot Palpation Overall Comment lateral malleolus 2/4 ROM Ankle/Foot Dorsiflexion w/Knee Extended 52 Active Range Motion (degrees) Ankle/Foot Dorsiflexion w/Knee Extended 55 Passive Range (degrees) Ankle/Foot Plantar Flexion Active Range 52 of Motion (degrees) Ankle/Foot Plantar Flexion Passive Range 55 of Motion (degrees) Ankle/Foot Eversion Active Range of 22 Motion (degrees) Ankle/Foot Eversion Passive Range of 25 Motion (degrees) Ankle/Foot Inversion Active Range of 29 Motion (degrees) Ankle/Foot Inversion Passive Range of 32 Motion (degrees) Great Toe ROM Reason Not Measured Within Functional Limits Accessory Movements Ankle Accessory Movements that Elicit Fibular Dorsal [place],Fibular Symptoms Ventral [place] MMT left Ankle Dorsiflexion Strength Grade
== END 2022-03-22 09:05 | disposition home or self-care (01) ==
LOC: PT 09:00
PROVIDERS: Visit Provider Podiatrist
DX: M25.572 Pain in left ankle and joints of left foot (principal); S82.832A Other fracture of upper and lower end of left fibula, initial encounter for closed fracture; M76.62 Achilles tendinitis, left leg; S99.912A Unspecified injury of left ankle, initial encounter
CPT/HCPCS: 97010; 97014; 97016; 97110; 97112; 97163; 97164; 97760; G0283

== ENCOUNTER → 2022-04-26 09:33 | Outpatient (CLI) | payer OTHER, SELFPAY ==
--- NOTE | 2022-04-26 09:37 | XR_ITS ---
FINAL REPORT CLINICAL HISTORY: PAIN COMPARISON: February 26, 2022 FINDINGS: LEFT ANKLE: Three views of the left ankle were obtained. There is no acute fracture or dislocation. There is a chronic fracture of the lateral malleolus. There is mild degenerative change. There is a chronic calcification inferior to the medial malleolus. There is a small calcification in the region of the distal Achilles tendon. There is no soft tissue abnormality. IMPRESSION: Stable findings as above with no acute bony abnormality. Reviewed, Interpreted and Dictated by Moises Sykes III, MD Transcribed by Isabell Bautista Authenticated and [facility]
== END ==
PROVIDERS: PCP Nurse Practitioner Family; Visit Provider Podiatrist
DX: M25.572 Pain in left ankle and joints of left foot (principal); T14.8XXA Other injury of unspecified body region, initial encounter
CPT/HCPCS: 73610

== ENCOUNTER → 2022-05-31 12:25 | Outpatient (CLI) | payer BC, SELFPAY ==
--- NOTE | 2022-05-31 12:29 | XR_ITS ---
FINAL REPORT CLINICAL HISTORY: ARTHRALGIA OF LT KNEE, anterior knee pain x 1 year, no injury FINDINGS: LEFT KNEE 3 views of the left knee were obtained. There is no acute fracture or dislocation. Visualized joint spaces are normally aligned. There is minimal osteophyte formation along the medial joint margin. Soft tissues are unremarkable. IMPRESSION: No acute bony abnormality. Reviewed, Interpreted and Dictated by Yousuf Dimas MD Transcribed by Aurea Cohen Authenticated and [facility]
--- NOTE | 2022-05-31 12:29 | XR_ITS ---
FINAL REPORT CLINICAL HISTORY: ARTHRALGIA OF RT KNEE, anterior knee pain x 1 year, no injury FINDINGS: RIGHT KNEE 3 views of the right knee were obtained. There is no acute fracture or dislocation. Visualized joint spaces are normally aligned. There is minimal osteophyte formation along the medial joint margin. Soft tissues are unremarkable. IMPRESSION: No acute bony abnormality. Reviewed, Interpreted and Dictated by Yousuf Dimas MD Transcribed by Aurea Cohen Authenticated and [facility]
== END ==
PROVIDERS: PCP Nurse Practitioner Family; Visit Provider Nurse Practitioner Family
DX: M25.561 Pain in right knee (principal); M25.562 Pain in left knee
CPT/HCPCS: 73562

== ENCOUNTER → 2022-07-03 09:53 | Outpatient (CLI) | payer OTHER, SELFPAY ==
--- NOTE | 2022-07-03 09:58 | XR_ITS ---
FINAL REPORT CLINICAL HISTORY: fracture evaluation COMPARISON: 04/26/2022 FINDINGS: Left ankle Three views were obtained. There is a subacute to chronic fracture of the lateral malleolus, visually stable. Mild degenerative changes are present. There is chronic calcification inferior to the medial malleolus. There is small calcification at the region of the distal Achilles tendon. IMPRESSION: Stable appearing findings as above. Reviewed, Interpreted and Dictated by Moises Sykes III, MD Transcribed by Polly Carolina Authenticated and [facility]
== END ==
PROVIDERS: PCP Nurse Practitioner Family; Visit Provider Podiatrist
DX: M25.572 Pain in left ankle and joints of left foot (principal); S82.832A Other fracture of upper and lower end of left fibula, initial encounter for closed fracture
CPT/HCPCS: 73610

== ENCOUNTER → 2022-08-01 09:48 | Outpatient (CLI) | payer BC, SELFPAY ==
--- NOTE | 2022-08-01 09:49 | MM_ITS ---
PROCEDURE INFORMATION: Exam: MG Bilateral Screening 3D Mammography Exam date and time: 08/01/2022 9:41 AM Age: 57 years old Clinical indication: Screening examination TECHNIQUE: Imaging protocol: Bilateral Screening tomosynthesis and 2D mammography including computer-aided detection (CAD) when performed. COMPARISON: 1. MG MM DIG SCREENING MAMM BI W/CAD 06/29/2021 8:07 AM 2. MG MM DIG SCREENING MAMM BI W/CAD 01/01/2020 10:25 AM FINDINGS: MAMMOGRAPHY: Breast composition: There are scattered areas of fibroglandular density. Mass: None. Architectural distortion: None. Calcifications: No suspicious calcifications. Asymmetric density: None. Skin thickening: None. Axillary adenopathy: None. IMPRESSION: No mammographic evidence of malignancy. Annual screening is recommended unless otherwise clinically indicated. ASSESSMENT: BI-RADS Category 1: Negative
== END ==
PROVIDERS: PCP Nurse Practitioner Family; Visit Provider Nurse Practitioner Obstetrics & Gynecology
DX: Z12.31 Encounter for screening mammogram for malignant neoplasm of breast (principal)
CPT/HCPCS: 77063; 77067

== ENCOUNTER → 2023-01-28 16:47 | Outpatient (CLI) | payer BC, SELFPAY ==
--- NOTE | 2023-01-28 16:51 | XR_ITS ---
PROCEDURE INFORMATION: Exam: XR Left Knee Exam date and time: 01/28/2023 4:52 PM Age: 57 years old Clinical indication: Pain and injury or trauma; Fall; Blunt trauma; Knee; Left; Additional info: Pain and swelling TECHNIQUE: Imaging protocol: Radiologic exam of the left knee. Views: 3 views. COMPARISON: CR XR KNEE LT 3V 05/31/2022 12:33 PM FINDINGS: Bones/joints: No acute fracture or dislocation. Mild narrowing of the medial knee joint space suggesting underlying chondromalacia. Minimal spurring of the medial tibial spine, medial femoral condyle and medial tibial plateau. Lateral view shows small patellar periarticular spurs. A small knee joint effusion. There are no lytic skeletal lesions seen. Bone mineralization appears grossly normal. Soft tissues: Prepatellar swelling/edema. Tiny rounded calcifications projected posterior to the knee on the lateral view which may be vascular calcifications.No radiopaque foreign bodies seen. IMPRESSION: 1. No acute fracture or dislocation. 2. Mild degenerative changes, as above. 3. Soft tissue swelling. 4. Small knee joint effusion.
== END ==
LOC: RAD 16:48
PROVIDERS: PCP Nurse Practitioner Family; Visit Provider Nurse Practitioner Family
DX: M25.562 Pain in left knee (principal); M25.462 Effusion, left knee; S89.92XA Unspecified injury of left lower leg, initial encounter
CPT/HCPCS: 73562

== ENCOUNTER → 2023-02-04 07:43 | Outpatient (CLI) | payer BC, SELFPAY ==
--- NOTE | 2023-02-04 07:46 | MR_ITS ---
FINAL REPORT CLINICAL HISTORY: LEFT ANTERIOR KNEE PAIN. PATIENT FELL 2 WEEKS AGO. PAIN WHEN BENDING AND EXTENDING. KNEE INSTABILITY. FINDINGS: Multi planar MR imaging was performed of the right knee. The anterior and posterior cruciate ligaments are intact. The quadriceps and patellar tendons are intact. The medial and lateral menisci are intact without evidence of tear. The medial and lateral collateral ligaments appear intact. The medial and lateral retinacula appear intact. There is edema in the patella. There is grade 1-2 chondromalacia along the undersurface of the patella. There is moderate subcutaneous soft tissue edema anterior to the patella probably due to soft tissue contusion. IMPRESSION: Probable soft tissue contusion anterior to the patella. Edema in the patella with grade 1-2 chondromalacia probably due to osseous contusion. Reviewed, Interpreted and Dictated by Yousuf Dimas MD Transcribed by Rahul Steele Authenticated and [facility]
== END ==
LOC: RAD 07:43
PROVIDERS: PCP Nurse Practitioner Family; Visit Provider Nurse Practitioner Family
DX: M25.562 Pain in left knee (principal); M25.462 Effusion, left knee; S89.92XA Unspecified injury of left lower leg, initial encounter
CPT/HCPCS: 73721

== ENCOUNTER → 2023-04-25 15:51 | Outpatient (CLI) | payer BC, SELFPAY ==
[2023-04-25 16:50] LABS: Chloride 102 mmol/L (98-107); Potassium 4.5 mmoL/L (3.5-5.1); Sodium 139 mmol/L (136-145)
[2023-04-25 16:52] LABS: Alanine Aminotransferase 20 U/L (12-78); Aspartate Amino Transferase 21 U/L (14-36); Blood Urea Nitrogen 15 mg/dl (7-17); Estimated Glomerular Filt Rate 65 ml/min (>60); GFR (African American) 78 ML/MIN (>60)
[2023-04-25 16:53] LABS: Albumin/Globulin Ratio 1.5 (1.1-1.8); Alkaline Phosphatase 74 U/L (38-126); Anion Gap 12.5 mEq/L (5-15); Bilirubin,Total < 0.1 mg/dl (0.2-1.3); Calcium 9.5 mg/dl (8.4-10.2); Carbon Dioxide 29 mmol/L (22.0-30.0); Globulin 2.6 g/dL (1.3-3.2); Glucose 89 mg/dl (74-100); Total Protein,Serum 6.6 g/dl (6.3-8.2)
== END ==
PROVIDERS: PCP Nurse Practitioner Family; Visit Provider Nurse Practitioner Family
DX: R60.9 Edema, unspecified (principal); K42.0 Umbilical hernia with obstruction, without gangrene
CPT/HCPCS: 36415; 80053

== ENCOUNTER → 2023-05-08 08:53 | Outpatient (CLI) | payer BC, SELFPAY ==
--- NOTE | 2023-05-08 09:00 | CT_ITS ---
FINAL REPORT TECHNIQUE: After the administration of oral and intravenous contrast, axial images were obtained through the abdomen and pelvis by computed tomography. The study was performed with techniques to keep radiation dose as low as reasonably achievable, (ALARA). Individual dose reduction techniques using automated exposure control or adjustment of mA and/or kV according to the patient's size were employed. CLINICAL HISTORY: HERNIA FINDINGS: Abdomen: The lung bases are clear. The liver parenchyma is homogeneous. The gallbladder has been surgically removed. The spleen, pancreas, adrenals and kidneys appear unremarkable. The aorta is normal in caliber. There is no free fluid or adenopathy. There is a moderate amount of stool throughout the colon. Any type of hernia is visualized. Pelvis: The appendix is normal. The urinary bladder is unremarkable. There is no free fluid or adenopathy. IMPRESSION: No acute intra-abdominal process. Reviewed, Interpreted and Dictated by Yousuf Dimas MD Transcribed by Oxana Love Authenticated and [facility]
== END ==
PROVIDERS: PCP Nurse Practitioner Family; Visit Provider Nurse Practitioner Family
DX: K42.0 Umbilical hernia with obstruction, without gangrene (principal)
CPT/HCPCS: 74177; Q9967

== ENCOUNTER 2023-12-16 15:21 | Outpatient (CLI) | payer BC, SELFPAY ==
--- NOTE | 2023-12-16 15:23 | XR_ITS ---
FINAL REPORT CLINICAL HISTORY: right anterior knee pain, swelling COMPARISON: None FINDINGS: Three views of the right knee reveal no evidence of fracture or dislocation. The bony alignment is normal. There is moderate degenerative narrowing present, greatest in the medial compartment. There is no evidence of joint effusion. No localized soft tissue abnormality is identified. IMPRESSION: No acute abnormality identified. Moderate degenerative change present, greatest in the medial compartment. Reviewed, Interpreted and Dictated by Colton Murillo MD Transcribed by Oxana Love Authenticated and [facility]
== END 2023-12-16 23:59 ==
LOC: RAD 15:21
PROVIDERS: PCP Nurse Practitioner Family; Visit Provider Nurse Practitioner Family
DX: M25.461 Effusion, right knee (principal); M25.561 Pain in right knee
CPT/HCPCS: 73562

== ENCOUNTER 2024-01-20 14:01 | Outpatient (CLI) | payer BC, SELFPAY ==
--- NOTE | 2024-01-20 14:02 | MR_ITS ---
FINAL REPORT CLINICAL HISTORY: Right knee pain, swelling and instability SINCE FALL COMPARISON: None FINDINGS: Multiplanar MR imaging of the right knee was performed without contrast. There is a partial tear of the posterior root of the medial meniscus with medial subluxation of the body of the medial meniscus. There is also a tear in the posterior horn of the lateral meniscus. The anterior and posterior cruciate ligaments are intact. The medial collateral ligament and lateral ligamentous complex are intact. The patellar and quadriceps tendons are intact. Mild degenerative changes present, with severe medial compartment chondromalacia and osteochondral lesions in the medial femoral condyle and medial tibial plateau. There is also an osteochondral lesion involving the apex of the patella. A small joint effusion is seen. There is a mass in the head of the fibula measuring 21 mm in size, consistent with an enchondroma. The musculature is intact. There is a ruptured popliteal cyst present. IMPRESSION: Partial tear posterior root of the medial meniscus with medial subluxation of the body of the meniscus. There is also tear of the posterior horn of the lateral meniscus. 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 There is also an osteochondral lesion involving the apex of the patella. Mass in the head of the fibula most consistent in appearance with an enchondroma. Reviewed, Interpreted and Dictated by Moises Sykes III, MD Transcribed by Oxana Love Authenticated and [facility]
== END 2024-01-20 23:59 ==
LOC: RAD 14:02
PROVIDERS: PCP Nurse Practitioner Family; Visit Provider Nurse Practitioner Family
DX: M25.361 Other instability, right knee (principal); M25.461 Effusion, right knee; M25.561 Pain in right knee
CPT/HCPCS: 73721

== ENCOUNTER 2024-01-28 13:05 | Outpatient (CLI) | payer BC, SELFPAY ==
[2024-01-28 13:55] LABS: Uric Acid 5.4 mg/dl (2.5-6.2)
[2024-01-28 15:34] LABS: Erythrocyte Sedimentation Rate 22 mm/hr (0-30)
[2024-01-29 13:42] LABS: RA Latex Turbid. <10.0 IU/mL (<14.0)
[2024-01-30 11:19] LABS: Antinuclear Antibodies, IFA Negative (.)
== END 2024-01-28 23:59 ==
LOC: LAB.DROPOF 13:05
PROVIDERS: PCP Nurse Practitioner Family; Visit Provider Nurse Practitioner Family
DX: M25.50 Pain in unspecified joint (principal)
CPT/HCPCS: 84550; 85651; 86038; 86431

== ENCOUNTER 2024-02-27 13:06 | Outpatient (CLI) | payer BC, SELFPAY ==
--- NOTE | 2024-02-27 13:12 | XR_ITS ---
FINAL REPORT CLINICAL HISTORY: Right Knee pain COMPARISON: 12/16/2023 FINDINGS: Three views of the right knee reveal no evidence of fracture or dislocation. The bony alignment is normal. Mild degenerative changes present. There is mild medial compartment narrowing. A small joint effusion is present. No localized soft tissue abnormality is identified. IMPRESSION: Mild degenerative changes with a small joint effusion. Reviewed, Interpreted and Dictated by Moises Sykes III, MD Transcribed by Oxana Love Authenticated and . [facility]
== END 2024-02-27 23:59 ==
LOC: RAD 13:07
PROVIDERS: PCP Nurse Practitioner Family; Visit Provider Orthopaedic Surgery
DX: M25.561 Pain in right knee (principal)
CPT/HCPCS: 73562

== ENCOUNTER 2024-03-27 15:12 | Outpatient (CLI) | payer BC, SELFPAY ==
[2024-03-27 13:48] LABS: Basophils % 0.6 % (0.1-2.0); Eosinophils # 0.1 K/mm3 (0.0-0.4); Eosinophils % 2.1 % (0.1-12.0); Hematocrit 40.4 % (37.0-47.0); Hemoglobin 12.9 g/dL (12.2-16.2); Lymphocytes # 1.7 K/mm3 (0.7-4.5); Lymphocytes % 25.1 % (10-50); Mean Corpuscular Hemoglobin 28.8 pg (27.0-31.2); Mean Corpuscular Volume 90.1 fl (81-99); Mean Platelet Volume 7.5 fl (7.4-10.4); Monocytes # 0.3 K/mm3 (0.1-1.0); Neutrophils # 4.5 K/mm3 (1.8-7.8); Neutrophils % 68.1 % (37.0-80.0); Platelet Count 364 K/mm3 (142-424); Red Blood Count 4.49 M/mm3 (4.20-5.40); Red Cell Distribution Width 15.3 % (11.5-17.5); White Blood Count 6.6 K/mm3 (4.8-10.8)
[2024-03-27 14:06] LABS: Alanine Aminotransferase 22 U/L (12-78); Albumin Level 4.4 g/dl (3.5-5.0); Albumin/Globulin Ratio 1.5 (1.1-1.8); Alkaline Phosphatase 108 U/L (38-126); Anion Gap 14.8 mEq/L (5-15); Aspartate Amino Transferase 23 U/L (14-36); Bilirubin,Total 0.5 mg/dl (0.2-1.3); Blood Urea Nitrogen 19 mg/dl (7-17); Calcium 10.3 mg/dl (8.4-10.2); Carbon Dioxide 29 mmol/L (22.0-30.0); Chloride 103 mmol/L (98-107); Chol/HDL Ratio 3.4 (1-3.5); Cholesterol 247 mg/dl (140-200); Estimated Glomerular Filt Rate 74 ml/min (>60); GFR (African American) 89 ML/MIN (>60); Globulin 2.9 g/dL (1.3-3.2); Glucose 100 mg/dl (74-100); HDL Cholesterol 73 mg/dl (40-60); Potassium 4.8 mmoL/L (3.5-5.1); Sodium 142 mmol/L (136-145); Total Protein,Serum 7.3 g/dl (6.3-8.2); Triglycerides 111 mg/dl (30-150); VLDL Cholesterol 22 mg/dL (0-40)
[2024-03-27 14:17] LABS: Direct LDL Cholesterol 145.07 mg/dL (100-129)
[2024-03-27 14:23] LABS: 25-OH Vitamin D, Total 22.8 ng/mL (30-100)
[2024-03-27 14:37] LABS: Thyroid Stimulating Hormone 1.16 uIU/mL (0.465-4.68)
[2024-04-01 12:07] LABS: Lyme B. burgdorferi PCR Blood Negative (Negative)
== END 2024-03-27 23:59 | disposition home or self-care (01) ==
LOC: LAB.DROPOF 15:12
PROVIDERS: PCP Nurse Practitioner Family; Visit Provider Nurse Practitioner Family
DX: I10 Essential (primary) hypertension (principal); L30.9 Dermatitis, unspecified; E55.9 Vitamin D deficiency, unspecified; S30.860A Insect bite (nonvenomous) of lower back and pelvis, initial encounter; W57.XXXA Bitten or stung by nonvenomous insect and other nonvenomous arthropods, initial encounter; Z68.41 Body mass index [BMI] 40.0-44.9, adult; Z87.891 Personal history of nicotine dependence
CPT/HCPCS: 80053; 80061; 82306; 84443; 85025; 87476

== ENCOUNTER 2024-05-19 10:47 | Outpatient (CLI) | payer BC, SELFPAY ==
--- NOTE | 2024-05-19 11:03 | ECG_ITS ---
APPROVED REPORT Exam: Resting ECG HR:69 bpm ECG Measurements Heart Rate 69 AXES GA 130 P 73 QRSd 85 QRS 88 QT 360 T 45 QTc 379 Conclusion SINUS RHYTHM NORMAL ECG UNCONFIRMED REPORT Electronically signed by : Brenden Riley MD 05/19/2024 19:18:02
[2024-05-19 11:26] LABS: Basophils % 0.5 % (0.1-2.0); Eosinophils # 0.1 K/mm3 (0.0-0.4); Eosinophils % 2.2 % (0.1-12.0); Hemoglobin 12.8 g/dL (12.2-16.2); Lymphocytes # 1.5 K/mm3 (0.7-4.5); Mean Corpuscular Hemoglobin 28.8 pg (27.0-31.2); Mean Platelet Volume 7.2 fl (7.4-10.4); Monocytes # 0.3 K/mm3 (0.1-1.0); Monocytes % 5.4 % (1.7-9.3); Neutrophils # 4.2 K/mm3 (1.8-7.8); Neutrophils % 67.9 % (37.0-80.0); Platelet Count 334 K/mm3 (142-424); Red Blood Count 4.44 M/mm3 (4.20-5.40); Red Cell Distribution Width 15.2 % (11.5-17.5); White Blood Count 6.2 K/mm3 (4.8-10.8)
[2024-05-19 11:44] LABS: Alanine Aminotransferase 17 U/L (12-78); Albumin Level 3.8 g/dl (3.5-5.0); Albumin/Globulin Ratio 1.4 (1.1-1.8); Alkaline Phosphatase 79 U/L (38-126); Anion Gap 5.8 mEq/L (5-15); Aspartate Amino Transferase 21 U/L (14-36); Bilirubin,Total 0.5 mg/dl (0.2-1.3); Blood Urea Nitrogen 13 mg/dl (7-17); Carbon Dioxide 29 mmol/L (22.0-30.0); Chloride 109 mmol/L (98-107); Estimated Glomerular Filt Rate 64 ml/min (>60); GFR (African American) 78 ML/MIN (>60); Globulin 2.8 g/dL (1.3-3.2); Glucose 100 mg/dl (74-100); Potassium 4.8 mmoL/L (3.5-5.1); Sodium 139 mmol/L (136-145); Total Protein,Serum 6.6 g/dl (6.3-8.2)
== END 2024-05-19 23:59 | disposition home or self-care (01) ==
LOC: LAB 10:48
PROVIDERS: PCP Nurse Practitioner Family; Visit Provider Orthopaedic Surgery
DX: S83.271D Complex tear of lateral meniscus, current injury, right knee, subsequent encounter (principal)
CPT/HCPCS: 36415; 80053; 85025; 93005

== ENCOUNTER 2024-05-25 09:04 | Day surgery (SDC) | payer BC, SELFPAY ==
[2024-05-19 10:40] VITALS: BMI 41.1
[2024-05-25] VITALS (10 sets, daily range): BP systolic 143–174; BP diastolic 71–93; PULSE 73–91; RESP 14–22; TEMP 36.2–36.3; O2SAT 93–97
[2024-05-25] MEDS: LACTATED RINGERS 1000ML 1,000 ML 100 ML IV (09:37)
--- NOTE | 2024-05-25 10:02 | EXP.ANES.CKL ---
[facility] Disclaimer: The information contained in this section may have been updated after the patient was seen, as this information can be updated by other users. Medical History History of COVID-19 Depression Irritable bowel syndrome (IBS) Surgical History Hx of section History of cholecystectomy History of carpal tunnel surgery History of partial hysterectomy Family History Father Coronary artery disease Cancer lung Heart attack Social History Smoking Status: Former smoker alcohol intake: never substance use type: denies use current occupational status: employed Travel in the last 8 weeks: None household members: spouse housing: house current occupation: 3M current occupational exposures/hazards: No caffeine: Yes [facility] Anesthesia Checklist Patient Identification Patient Identification: Arm Band Structural Data Admitted From: Home Planned Operative Procedure/s: Right Knee Arthroscopy with Partial Medial Meniscectomy Consent for Planned Operative Procedure(s) Verified: Yes Verified Documents: Surgical Consent and History and Physical NPO Status Verified Time NPO: 00:00 Additional verifications Anesthesia Reactions: No Hx Blood Transfusions: No Blood Transfusion Reaction: No Airway Assessment Mallampati Score:: Class II C-Spine Mobility Assessed: Yes TMJ Mobility Assessed: Yes Dentition: Edentulous (Dentures removed) Neurological Assessment Level of Consciousness: Awake, Alert and Appropriate Anesthesia Plan Anesthesia Risk discussed: Yes Anesthesia Plan: Verified ASA Class: III Anesthesia Type: General
[2024-05-25] MEDS: CEFAZOLIN SODIUM 2 GM in 0.9 % SODIUM CHLORIDE 100 ML IV (11:38)
[2024-05-25] MEDS: BUPIVACAINE 0.25% 30ML VIAL 75 MG (12:07)
[2024-05-25] MEDS: RINGERS SOLUTION,LACTATED 6,000 ML 25 ML IR (12:14)
--- NOTE | 2024-05-25 12:24 | EXP.OP.NOTE ---
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 Right knee arthroscopy with partial medial and lateral meniscectomies 2. Right knee arthroscopy with chondroplasty medial femoral condyle lateral femoral condyle Surgeon:: Hector Strickland DO GREEN HIDE INSPECTOR:: Ashok Munguia Anesthesia: GETA Estimated blood loss (mL): 0 Operative findings:: See dictation Operative note:: Patient identified preoperatively. Right knee marked with yes my initials. Transferred operative suite. Placed upon the operating bed. General anesthesia administered airway secured. Right lower extremity was then prepped and draped in normal sterile fashion within the knee young. Once prepped and draped final operative timeout performed to identify proper patient procedure and extremity. Everyone involved the case agreed. There were no counter indications to beginning. She did receive preoperative antibiotics. Marking pen was used to esther the bony landmarks of the knee and standard portal sites. Esmarch was used to exsanguinate the extremity and pneumatic tourniquet inflated to 300 mmHg. Skin knife was used incise standard anterior lateral portal and blunt with trocar was placed in patellofemoral joint. This was then exchanged with a camera. I swept directly into the medial joint line where the anterior medial portal was made with the help with 18-gauge spinal needle. Within the medial joint line there was several loose bodies present the anterior medial portal was made and the sucker shaver was placed and the loose bodies were removed. Attention is then brought to the meniscus there is a complex tear of the posterior horn of the medial meniscus using a combination of straight biter and sucker shaver partial medial meniscectomy was performed back to [facility]. There was grade III and IV chondromalacia of the medial femoral condyle and loose fraying cartilage where chondroplasty was performed with a sucker shaver. Attention is then brought into the intercondylar notch the ACL was seen and intact. Attention was then taken to the lateral joint line within the lateral joint line there is also a large complex tear of the posterior horn of the lateral meniscus and a kissing lesion on the lateral femoral condyle adjacent to the meniscal tear with full-thickness cartilage lesion. Using a combination of straight biter and sucker shaver partial lateral meniscectomy was performed back to stable rim. And chondroplasty was performed of the loose carleen cartilage of the lateral femoral condyle. Camera is then removed the joint was drained local anesthesia infiltrated the portal sites skin closed with nylon stitch. Sterile dressing placed from toe to thigh patient waken anesthesia taken recovery stable condition. Condition: stable Disposition: PACU Complications:: None apparent
--- NOTE | 2024-05-25 12:39 | EXP.ANES.I ---
[facility] Anesthesia Record Part I Anesthesia Record I Intake, IV Amount: 1,000 Hydration: Adequate Estimated blood loss (mL): 20 Urine output (mL): 0 Blood Products used (#): none Blood Pressure: 160/75 SaO2: 97 Pulse Rate: 88 Airway Patency: Patent Respiratory Rate: 22 Temperature: 97.3 F Patient is:: Drowsy and Stable
--- NOTE | 2024-05-25 15:20 | EXP.ANES.II ---
[facility] Anesthesia Record Part II Anesthesia Record Part II Discharge Time: 13:02 Destination: Surgical Day Care (OP Surgery) PACU nurse assessment reviewed?: Yes Patient Condition:: Good Anesthesia Complications:: None Swallowing reflex intact?: Yes Airway Patency: Patent Cyanosis?: No Blood Pressure: 143/75 SaO2: 94 Respiratory Rate: 16 Pulse Rate: 82 Temperature: 97.2 F Mental Status: Alert & Oriented Pain level:: 0 Nausea and/or vomitting:: None Intake, IV Amount: 0 Hydration: Adequate
== END 2024-05-25 13:33 | disposition home or self-care (01) ==
PROVIDERS: PCP Nurse Practitioner Family; Visit Provider Orthopaedic Surgery
PROC: (CPT 29870; principal; 2024-05-25 10:45)
DX: S83.232A Complex tear of medial meniscus, current injury, left knee, initial encounter (principal); S83.271A Complex tear of lateral meniscus, current injury, right knee, initial encounter; M94.261 Chondromalacia, right knee
CPT/HCPCS: 29880; 96374; J0690; J1100; J2250; J2405; J3010; J7120

== ENCOUNTER 2024-08-14 07:54 | Outpatient (CLI) | payer BC, SELFPAY ==
--- NOTE | 2024-08-14 07:55 | MM_ITS ---
PROCEDURE INFORMATION: Exam: MG Bilateral Screening 3D Mammography Exam date and time: 08/14/2024 7:43 AM Age: 59 years old Clinical indication: Screening examination TECHNIQUE: Imaging protocol: Bilateral Screening tomosynthesis and 2D mammography including computer-aided detection (CAD) when performed. COMPARISON: MG MM DIG SCREENING MAMM BI W/CAD 08/01/2022 9:49 AM FINDINGS: MAMMOGRAPHY: Breast composition: There are scattered areas of fibroglandular density. Mass: Questionable 0.5 cm mass in the posterior left lateral breast only well seen in the craniocaudal projection. Architectural distortion: None. Calcifications: No suspicious calcifications. Asymmetric density: None. Skin thickening: None. Axillary adenopathy: None. IMPRESSION: Patient to be recalled for a spot compression view of the left breast in the craniocaudal projection, a full 90 degree lateral view of the left breast, and possible left breast ultrasound for further evaluation of a questionable left breast mass. ASSESSMENT: BI-RADS Category 0: Incomplete- Need Additional Imaging Evaluation
== END 2024-08-14 23:59 | disposition home or self-care (01) ==
LOC: RAD 07:55
PROVIDERS: PCP Nurse Practitioner Family; Visit Provider Nurse Practitioner Obstetrics & Gynecology
DX: Z12.31 Encounter for screening mammogram for malignant neoplasm of breast (principal)
CPT/HCPCS: 77063; 77067

== ENCOUNTER 2024-09-10 12:48 | Outpatient (CLI) | payer BC, SELFPAY ==
--- NOTE | 2024-09-10 12:55 | MM_ITS ---
PROCEDURE INFORMATION: Exam: US Left Breast, Complete MG Left Diagnostic Breast Tomosynthesis Exam date and time: 09/10/2024 12:57 PM Age: 59 years old Clinical indication: Callback from screening examination for a finding in the left breast. TECHNIQUE: Imaging protocol: Complete ultrasound of all four quadrants of the left breast and the retroareolar regions, including ultrasound of the axilla when performed. Left Diagnostic tomosynthesis and 2D mammography including computer-aided detection (CAD) when performed. Unilateral or bilateral exam. COMPARISON: MG MM DIG SCREENING MAMM BI W/CAD 08/14/2024 7:43 AM FINDINGS: MAMMOGRAPHY: Breast composition: There are scattered areas of fibroglandular density. Breast mammogram findings: Spot compression views demonstrate a low-density ovoid 0.7 cm mass in the upper outer aspect of the left breast. There is no distortion or suspicious calcifications. ULTRASOUND: Breast ultrasound findings: Ultrasound of the left upper outer quadrant demonstrates benign lymph node measuring 0.8 x 1.0 x 0.4 cm at the 2 o'clock axis, 10 cm from the nipple which is believed to correlate to the mammogram finding. There is a hypoechoic mass/complicated cysts, also possibly lymph node at the 5 o'clock axis, 6 cm from the nipple measuring 0.5 x 0.4 x 0.2 cm. There is no suspicious shadowing or distortion. No left axillary adenopathy. IMPRESSION: 1. Probably benign hypoechoic mass in the left breast 5 o'clock axis, 6 cm from the nipple. This is probably benign. Follow-up left breast mammogram and left breast ultrasound in 6 months is recommended for close surveillance. 2. Finding in the left upper outer quadrant that correlates to the screening mammogram finding is consistent with a benign lymph node measuring 1.0 cm. ASSESSMENT: BI-RADS Category 3: Probably benign.
== END 2024-09-10 23:59 | disposition home or self-care (01) ==
PROVIDERS: PCP Nurse Practitioner Family; Visit Provider Nurse Practitioner Obstetrics & Gynecology
DX: N63.21 Unspecified lump in the left breast, upper outer quadrant (principal)
CPT/HCPCS: 76641; 77061; 77065; G0279

== ENCOUNTER 2025-03-09 09:19 | Outpatient (CLI) | payer BC, SELFPAY ==
--- NOTE | 2025-03-09 09:24 | US_ITS ---
PROCEDURE INFORMATION: Exam: US Left Breast, Complete MG Left Diagnostic Breast Tomosynthesis Exam date and time: 03/09/2025 9:30 AM Age: 59 years old Clinical indication: Follow-up for findings in the left breast. TECHNIQUE: Imaging protocol: Complete ultrasound of all four quadrants of the left breast and the retroareolar regions, including ultrasound of the axilla when performed. Left Diagnostic tomosynthesis and 2D mammography including computer-aided detection (CAD) when performed. Unilateral or bilateral exam. COMPARISON: 1. MG MM DIG MAMM DX UNILAT LT CAD 09/10/2024 1:05 PM 2. MG MM DIG SCREENING MAMM BI W/CAD 08/14/2024 7:43 AM FINDINGS: MAMMOGRAPHY: Breast composition: There are scattered areas of fibroglandular density. Breast mammogram findings: Stable ovoid low density mass in the upper outer left breast measuring 0.7 cm. This looks most compatible with a lymph node. No new or suspicious mass, suspicious calcifications, or architectural distortion. ULTRASOUND: Breast ultrasound findings: Ultrasound the left breast is performed. At the 2 o'clock axis, 10 cm from the nipple there is a hypoechoic mass, possible lymph node that measures 1.1 x 1.4 x 0.4 cm. This correlates to the mammogram finding, and is unchanged. There is no suspicious mass, shadowing, or distortion. IMPRESSION: 1. Benign lymph node in the left breast. No mammographic evidence of malignancy. 2. Annual bilateral mammographic screening is recommended unless otherwise clinically indicated. ASSESSMENT: BI-RADS Category 2: Benign.
== END 2025-03-09 23:59 | disposition home or self-care (01) ==
LOC: RAD 09:20
PROVIDERS: PCP Orthopaedic Surgery; Visit Provider Nurse Practitioner Obstetrics & Gynecology
DX: R92.8 Other abnormal and inconclusive findings on diagnostic imaging of breast (principal); N63.20 Unspecified lump in the left breast, unspecified quadrant
CPT/HCPCS: 76641; 77061; 77065; G0279

== ENCOUNTER 2025-03-22 08:26 | Outpatient (CLI) | payer BC, SELFPAY ==
[2025-03-22 09:01] LABS: Basophils % 0.7 % (0.1-2.0); Eosinophils # 0.2 Kmm3 (0.0-0.4); Hematocrit 40.4 % (37.0-47.0); Hemoglobin 12.8 g/dL (12.2-16.2); Lymphocytes # 1.4 K/mm3 (0.7-4.5); Lymphocytes % 26.9 % (10-50); Mean Corpuscular HGB Conc 31.7 g/dL (31.8-35.4); Mean Corpuscular Volume 88.4 fl (81-99); Mean Platelet Volume 9.2 fl (7.4-10.4); Monocytes # 0.3 K/mm3 (0.1-1.0); Neutrophils # 3.4 K/mm3 (1.8-7.8); Nucleated Red Blood Cells # 0 10^3/uL; Nucleated Red Blood Cells % 0 %; Red Blood Count 4.57 M/mm3 (4.20-5.40); Red Cell Distribution Width 14.1 % (11.5-17.5); Red Cell Distribution Width-SD 45.1 fL; White Blood Count 5.4 K/mm3 (4.8-10.8)
[2025-03-22 09:32] LABS: Platelet Count 343 K/mm3 (142-424)
[2025-03-22 09:36] LABS: Albumin Level 3.9 g/dl (3.5-5.0); Chloride 110 mmol/L (98-107); Potassium 5.5 mmoL/L (3.5-5.1); Sodium 140 mmol/L (136-145)
[2025-03-22 09:38] LABS: Alanine Aminotransferase 15 U/L (12-78); Blood Urea Nitrogen 16 mg/dl (7-17); Estimated Glomerular Filt Rate 74 ml/min (>60); GFR (African American) 89 ML/MIN (>60)
[2025-03-22 09:39] LABS: Albumin/Globulin Ratio 1.6 (1.1-1.8); Alkaline Phosphatase 89 U/L (38-126); Anion Gap 6.5 mEq/L (5-15); Aspartate Amino Transferase 19 U/L (14-36); Bilirubin,Total 0.1 mg/dl (0.2-1.3); Calcium 10.1 mg/dl (8.4-10.2); Carbon Dioxide 29 mmol/L (22.0-30.0); Cholesterol 207 mg/dl (140-200); Globulin 2.5 g/dL (1.3-3.2); Glucose 111 mg/dl (74-100); Total Protein,Serum 6.4 g/dl (6.3-8.2); Triglycerides 154 mg/dl (30-150); VLDL Cholesterol 31 mg/dL (0-40)
[2025-03-22 09:50] LABS: Direct LDL Cholesterol 122.19 mg/dL (100-129)
[2025-03-22 10:10] LABS: Thyroid Stimulating Hormone 2.53 uIU/mL (0.465-4.68)
[2025-03-22 10:16] LABS: 25-OH Vitamin D, Total 25.3 ng/mL (30-100)
[2025-03-22 10:47] LABS: Vitamin B12 914 pg/mL (239-931)
[2025-03-22 11:03] LABS: Chol/HDL Ratio 4.1 (1-3.5); HDL Cholesterol 51 mg/dl (40-60)
[2025-03-23 12:21] LABS: FSH 59.9 mIU/mL (.); LH 37.6 mIU/mL (.)
== END 2025-03-22 23:59 | disposition home or self-care (01) ==
LOC: LAB 08:29
PROVIDERS: PCP Nurse Practitioner Family; Visit Provider Nurse Practitioner Obstetrics & Gynecology
DX: K58.9 Irritable bowel syndrome, unspecified (principal); E55.9 Vitamin D deficiency, unspecified; Z00.00 Encounter for general adult medical examination without abnormal findings
CPT/HCPCS: 36415; 80053; 80061; 82306; 82607; 83001; 83002; 84443; 85025

== ENCOUNTER 2025-07-13 15:09 | Outpatient (CLI) | payer BC, SELFPAY ==
--- NOTE | 2025-07-13 15:11 | XR_ITS ---
FINAL REPORT CLINICAL HISTORY: GEIGER x 1 month soa & tightness x 1 month FINDINGS: PA and lateral views of the chest are obtained. There is no prior exam for comparison. The cardiac and mediastinal silhouettes are within normal limits. The lungs are clear. There is no pleural effusion, pneumothorax, or acute osseous abnormality. IMPRESSION: No radiographic evidence of acute cardiac or pulmonary disease. Reviewed, Interpreted and Dictated by Teresa Maharaj MD Transcribed by Polly Carolina Authenticated and [facility]
[2025-07-13 15:54] LABS: Hematocrit 39.9 % (37.0-47.0); Hemoglobin 12.8 g/dL (12.2-16.2); Immature Granulocytes % 0.4 %; Mean Corpuscular HGB Conc 32.1 g/dL (31.8-35.4); Mean Corpuscular Hemoglobin 28.2 pg (27.0-31.2); Mean Corpuscular Volume 87.9 fl (81-99); Nucleated Red Blood Cells % 0 %; Platelet Count 327 K/mm3 (142-424); Red Blood Count 4.54 M/mm3 (4.20-5.40); Red Cell Distribution Width-SD 45.3 fL; White Blood Count 6.9 K/mm3 (4.8-10.8)
[2025-07-13 16:18] LABS: D-Dimer 0.96 ug/mL (0.0-0.5)
[2025-07-13 16:52] LABS: Albumin Level 4.2 g/dl (3.5-5.0); Chloride 107 mmol/L (98-107); Potassium 4.4 mmoL/L (3.5-5.1); Sodium 140 mmol/L (136-145)
[2025-07-13 16:54] LABS: Alanine Aminotransferase 14 U/L (12-78); Aspartate Amino Transferase 20 U/L (14-36); Blood Urea Nitrogen 12 mg/dl (7-17); Creatinine,Serum 0.80 mg/dl (0.52-1.04); Estimated Glomerular Filt Rate 73 ml/min (>60); GFR (African American) 89 ML/MIN (>60)
[2025-07-13 16:55] LABS: Albumin/Globulin Ratio 1.6 (1.1-1.8); Alkaline Phosphatase 86 U/L (38-126); Anion Gap 10.4 mEq/L (5-15); Bilirubin,Total 0.3 mg/dl (0.2-1.3); Calcium 9.9 mg/dl (8.4-10.2); Carbon Dioxide 27 mmol/L (22.0-30.0); Cholesterol 207 mg/dl (140-200); Globulin 2.6 g/dL (1.3-3.2); Glucose 99 mg/dl (74-100); HDL Cholesterol 52 mg/dl (40-60); Magnesium 1.7 mg/dl (1.6-2.3); Total Protein,Serum 6.8 g/dl (6.3-8.2); Triglycerides 140 mg/dl (30-150)
[2025-07-13 17:07] LABS: NT Pro Brain Natriuretic Pep. 262 pg/mL (0-125)
[2025-07-13 17:10] LABS: Troponin I < 0.01 ng/ml (0.00-0.034)
[2025-07-13 17:28] LABS: Thyroid Stimulating Hormone 1.51 uIU/mL (0.465-4.68)
== END 2025-07-13 23:59 | disposition home or self-care (01) ==
LOC: LAB 15:10
PROVIDERS: PCP Nurse Practitioner Family; Visit Provider Nurse Practitioner Family
DX: R07.89 Other chest pain (principal); R06.09 Other forms of dyspnea; R60.9 Edema, unspecified; Z13.220 Encounter for screening for lipoid disorders; I10 Essential (primary) hypertension
CPT/HCPCS: 36415; 71046; 80053; 80061; 83735; 83880; 84443; 84484; 85025; 85378

== ENCOUNTER 2025-07-16 13:21 | Outpatient (CLI) | payer BC, SELFPAY ==
--- NOTE | 2025-07-16 13:30 | CT_ITS ---
FINAL REPORT TECHNIQUE: Axial imaging of the chest is obtained after the administration of contrast. 3-D MIP reformatted images were also obtained and reviewed per PE protocol. This study was performed with techniques to keep radiation doses as low as reasonably achievable (ALARA). Individualized dose reduction techniques using automated exposure control or adjustment of mA and/or kV according to the patient's size were employed. CLINICAL HISTORY: Elevated D-dimer shortness of breath COMPARISON: None FINDINGS: The pulmonary arteries are well filled. There is no evidence of pulmonary embolus. There is no aortic dissection. Heart size is normal. There is no mediastinal, hilar, or axillary lymphadenopathy. The lungs are clear. There is no pleural or pericardial effusion. Limited evaluation of the upper abdomen is without acute abnormality. No acute osseous abnormality. IMPRESSION: No evidence of pulmonary embolism or aortic dissection. Reviewed, Interpreted and Dictated by Teresa Maharaj MD Transcribed by Oxana Love Authenticated and [facility]
[2025-07-16] MEDS: IOPAMIDOL-370 (76%);100ML BOTTLE 85 ML IV (13:46)
[2025-07-16] MEDS: 0.9 % SODIUM CHLORIDE 50 ML VIAL IV (13:46)
[2025-07-16] MEDS: SODIUM CHLORIDE 0.9% 10ML SYR (RAD ONLY) 10 ML IV (13:46)
== END 2025-07-16 23:59 | disposition home or self-care (01) ==
PROVIDERS: PCP Nurse Practitioner Family; Visit Provider Nurse Practitioner Family
DX: R79.89 Other specified abnormal findings of blood chemistry (principal); R07.89 Other chest pain; R06.09 Other forms of dyspnea
CPT/HCPCS: 71275; Q9967

== ENCOUNTER 2025-08-24 07:48 | Outpatient (CLI) | payer BC, SELFPAY ==
--- NOTE | 2025-08-24 | CA_ITS ---
APPROVED REPORT Exam: Pharmacologic Technologist: Chana Arcos Stress Nurse: Grace Willingham Ht: 5 ft 4 in Wt: 238 lbs BSA: 2.11 m2 HR: 78 bpm BP: 157/76 mmHg Stress Test Details Test: Lexiscan HR Resting HR: 78 bpm Max Heart Rate (APMHR): 161.573279 bpm Max HR Achieved: 109 bpm Target HR (85% APMHR): 136.680282 bpm % of APMHR: 67.70 Recovery HR: 88 bpm BP Resting BP: 157.0/76.0 mmHg Max BP: 171.0/80.0 mmHg Recovery BP: 163.0/72.0 mmHg ECG Stress ECG Conclusion Lungs CTA Symptoms: None Arrhythmias/Ectopy: PAC ST-T Changes: Less than 0.[address] segment changes. Conclusion: Nondiagnostic ECG/Lexiscan. Electronically signed by : Padmini Stanford MD 08/25/2025 22:56:11
--- NOTE | 2025-08-24 08:00 | NM_ITS ---
APPROVED REPORT Exam: Nuclear Stress Test Indication: soa Patient Location: Outpatient Stress Tech: Chana Arcos NM Tech:Grace Stoner ISABELAGeovanna RT (R)(N)(M) Ht: 5 ft 4 in Wt: 240 lbs Bra Size: dd HR: 78 bpm BP: 157/76 mmHg BSA: 2.11 m2 TID: 1.33 BMI: 41.1 History: dyspnea Procedure: Patient received 0.4 mg of intravenous Lexiscan, resting heart rate 78 bpm, resting blood pressure 157/76 mmHg, with Lexiscan maximum heart rate achieved was 114 bpm which is 85 % of the maximum predicted heart rate and blood pressure was 171/80 mmHg. With Lexiscan, patient denied any complaint of chest pain. Cardiac Stress and Resting SPECT Images: Cardiac Stress and Resting SPECT images were obtained using technetium 99m Myoview 29.8 mCi stress and 10.41 mCi at rest. Resting and stress imaging in supine and prone position demonstrate a large sized, moderate, predominantly fixed perfusion defect in the anterior and apical LV millan. There is a region of reversibility towards the basal anterior LV wall. There is also increase in transient ischemic dilatation ratio (TID 1.33), which may be suggestive of possible multivessel disease or balanced ischemia. Gated imaging demonstrates normal global LV systolic function. LVEF is calculated at 54%. Conclusion: Large sized, moderate, predominantly fixed perfusion defect in the anterior and apical LV millan. There is a region of reversibility towards the basal anterior LV wall. Findings are suggestive of partial reversible ischemia. There is also increase in transient ischemic dilatation ratio (TID 1.33), which may be suggestive of possible multivessel disease or balanced ischemia. Gated imaging demonstrates normal global LV systolic function. LVEF is calculated at 54%. Electronically signed by : Padmini Stanford MD 08/25/2025 13:18:12
[2025-08-24] MEDS: SODIUM CHLORIDE 0.9% 10ML SYR (RAD ONLY) 10 ML IV ×2 (08:15→10:00)
[2025-08-24 10:05] VITALS: BP 157/76; PULSE 78; RESP 14
--- NOTE | 2025-08-24 10:30 | CA_ITS ---
APPROVED REPORT EXAM: Comprehensive 2D, Doppler, and color-flow Echocardiogram Montessori Paraprofessional: Karey Mayberry RVT Ht: 5 ft 4 in Wt: 238lbs BSA: 2.11 BP: 167/75 mmHg Indications: SHORTNESS OF BREATH 2D Dimensions IVSd 0.90 cm F: 0.6-1.0 LVEF (Visual) 62.90 % PWd 1.29 cm F: 0.6 - 1.0 LA Volume 55.30 mL LVDd 4.98 cm F: 3.9 - 5.3 LA Volume Index 26.21 mL/m2 (M/F) 16-34 LVDs 3.28 cm F: 2.2 - 3.5 EF AP4 52.10 % Left Atrium 3.27 cm F: 2.7 - 3.8 GL Strain -16.1 % RVID Base (AP4) 2.81 cm (M/F) 2.5-4.1 LVOT 1.97 cm (M/F) 1.5-2.5 M-Mode Dimensions LVDd 4.98 cm (3.5-5.7) Ao Diam 3.04 cm (2.0-3.7) LVDs 3.28 cm (3.5-5.7) IVSd 0.90 cm (0.6-1.1) PWd 1.29 cm (0.6-1.1) FS 34.10% TAPSE 2.83 (<1.7) LV Diastology E Decel Time 192 (160-240 msec) E/A Ratio 1.1 MED E' 5.2 (>= 7 cm/sec) E'/MED E' Ratio 21.50 (<= 14) LAT E' 6.2 (>= 10 cm/sec) E/LAT E' Ratio 18.03 (<= 14) Aortic Valve LVOT Max 129.0 (70-110 cm/s) ISABEL Index 1.00 cm2/m2 LVOT VTI 26.54 cm AoV Peak Wilber. 189.0 (50-130 cm/s) AO Peak GR. 13.70 mmHg AO Mean GR. 7.80 (<5 mmHg) AO VTI 38.1 (18-25 cm) ISABEL (VTI) 2.12 (2.5-4.5 cm2) Mitral Valve MV E Max Wilber. 112.0 (40-130 cm/s) MV A Velocity 100.0 (40-130 cm/s) E/A Ratio 1.12 MV Decel. Time 192 (160-240 ms) Left Ventricle The left ventricle is normal size. Left ventricular systolic function is normal. The left ventricular ejection fraction is within the normal range. There is increased left ventricular wall thickness. There is normal LV segmental wall motion. The left ventricular diastolic function is normal. LVEF is 55% Right Ventricle The right ventricle is mildly dilated. The right ventricular systolic function is normal. Atria Left atrium is mildly dilated. Right atrium is mildly dilated. There is no color Doppler evidence of interatrial shunt. Aortic Valve The aortic valve is mildly thickened. There is no hemodynamically significant aortic valvular stenosis. Trace aortic regurgitation is present. Mitral Valve The mitral valve is normal in structure. No evidence of mitral valve stenosis. Mild mitral regurgitation is present. Tricuspid Valve The tricuspid valve leaflets are thin and pliable. Trace tricuspid regurgitation. There is insufficient TR jet to estimate RVSP. Pulmonic Valve The pulmonary valve is grossly normal in structure. Trace pulmonic valve regurgitation is present. Great Vessels The aortic root is normal in size. IVC is normal in size and collapses >50% with inspiration. Pericardium There is no pericardial effusion. Other Information Study Quality: Fair Conclusion Normal biventricular systolic function. Mild RV dilation. Mild biatrial dilation. Mild MR. Electronically signed by : Padmini Stanford MD 08/29/2025 16:31:22
[2025-08-24] MEDS: ISOTOPE MYOVIEW (PER STUDY) 1 DOSE IV (10:34)
== END 2025-08-24 23:59 | disposition home or self-care (01) ==
PROVIDERS: PCP Nurse Practitioner Family; Visit Provider Nurse Practitioner
DX: I34.0 Nonrheumatic mitral (valve) insufficiency (principal); I51.7 Cardiomegaly
CPT/HCPCS: 78452; 93017; 93018; 93306; A9502; J2785

== ENCOUNTER 2025-09-17 08:25 | Day surgery (SDC) | payer BC, SELFPAY ==
[2025-09-17] VITALS (14 sets, daily range): BP systolic 116–187; BP diastolic 62–94; PULSE 50–78; RESP 16–20; TEMP 36.6; O2SAT 95–98; BMI 41.8
--- NOTE | 2025-09-17 07:16 | IR_ITS ---
APPROVED REPORT Patient Location: Outpatient PROCEDURES Left heart catheterization Left ventriculogram Selective coronary angiogram INDICATION Abnormal Myoview, Angina pectoris Informed consent was obtained prior to the procedure. COMPLICATIONS NONE Estimated Blood Loss: LESS THAN 10 ML TECHNIQUE One percent lidocaine used to anesthetize the right anterior aspect of the wrist. The right radial artery was accessed via the Seldinger technique. A 6 Latvian sheath was placed in the right radial artery. 2.5 mg of Verapamil, 800 mcg of nitroglycerin, 1mg Lidocaine and 5000 U Heparin were given through the arterial sheath. The JL3 catheter was also used to perform left heart catheterization, left ventriculogram and selective coronary angiogram. At the end of the procedure the sheath was removed good hemostasis was achieved using Traclet band, patient was transferred to the postop holding area in stable condition. ANGIOGRAPHIC RESULTS The left main artery Normal The left anterior descending artery Mild diffuse 10% luminal regularities The circumflex artery Codominant mild diffuse 10% luminal regularities The right coronary artery Codominant mild diffuse 10% luminal regularities The [place] ventriculogram reveals Normal 65% The left ventricular end-diastolic pressure Elevated at 20 to 25 mmHg IMPRESSION Mild nonflow-limiting coronary artery disease with diffuse luminal regularities as described above Normal ejection fraction Elevated LVEDP PLAN 1. Risk factor modification 2. Treatment of diastolic dysfunction Electronically signed by : Lopez Rowell MD 09/17/2025 10:04:26
[2025-09-17 08:46] LABS: Hematocrit 42.5 % (37.0-47.0); Hemoglobin 13.9 g/dL (12.2-16.2); Immature Granulocytes % 0.6 %; Mean Corpuscular HGB Conc 32.7 g/dL (31.8-35.4); Mean Corpuscular Hemoglobin 28.9 pg (27.0-31.2); Mean Corpuscular Volume 88.4 fl (81-99); Nucleated Red Blood Cells % 0 %; Platelet Count 344 K/mm3 (142-424); Red Blood Count 4.81 M/mm3 (4.20-5.40); Red Cell Distribution Width-SD 44.8 fL; White Blood Count 6.4 K/mm3 (4.8-10.8)
[2025-09-17 08:53] LABS: Chloride 102 mmol/L (98-107); Sodium 137 mmol/L (136-145)
[2025-09-17 08:54] LABS: Potassium 3.8 mmoL/L (3.5-5.1)
[2025-09-17 08:57] LABS: Anion Gap 9.8 mEq/L (5-15); Blood Urea Nitrogen 13 mg/dl (7-17); Calcium 9.7 mg/dl (8.4-10.2); Carbon Dioxide 29 mmol/L (22.0-30.0); Creatinine Clearance Estimated 58 mL/min (50-200); Creatinine,Serum 0.90 mg/dl (0.52-1.04); Estimated Glomerular Filt Rate 64 ml/min (>60); GFR (African American) 78 ML/MIN (>60); Glucose 107 mg/dl (74-100)
[2025-09-17] MEDS: HEPARIN 1,000 UNITS/500ML NS (CATH LAB) 3000 UNIT IV (09:32)
[2025-09-17] MEDS: VERAPAMIL 2.5MG/ML 2ML VIAL 2.5 MG IV (09:33)
[2025-09-17] MEDS: HEPARIN 1,000 UNITS/ML 10ML VIAL (CATH LAB) 5000 UNIT IV (09:33)
[2025-09-17] MEDS: NITROGLYCERIN 800MCG/8ML SYR (CATH LAB) 800 MCG IA (09:34)
[2025-09-17] MEDS: MIDAZOLAM HCL 1MG/ML 5ML VIAL 1 MG IV (09:34)
[2025-09-17] MEDS: FENTANYL 100MCG/2ML VIAL 50 MCG IV (09:34)
[2025-09-17] MEDS: 0.9 % SODIUM CHLORIDE 500 ML 25 ML IV (09:34)
[2025-09-17] MEDS: LIDOCAINE 1% 10ML MDV 10 ML IJ (10:20)
[2025-09-17] MEDS: IOPAMIDOL-370 (76%);100ML BOTTLE 50 ML IV (14:37)
== END 2025-09-17 13:56 | disposition home or self-care (01) ==
PROVIDERS: PCP Nurse Practitioner Family; Visit Provider Internal Medicine
PROC: 4A023N7 Measurement of Cardiac Sampling and Pressure, Left Heart, Percutaneous Approach (ICD-10-PCS; CPT 93452; principal; 2025-09-17 08:20)
DX: I25.118 Atherosclerotic heart disease of native coronary artery with other forms of angina pectoris (principal); R94.39 Abnormal result of other cardiovascular function study; R93.1 Abnormal findings on diagnostic imaging of heart and coronary circulation; R07.9 Chest pain, unspecified; R06.09 Other forms of dyspnea; I10 Essential (primary) hypertension; Z87.891 Personal history of nicotine dependence; Z79.899 Other long term (current) drug therapy; Z82.49 Family history of ischemic heart disease and other diseases of the circulatory system
CPT/HCPCS: 80048; 85025; 93458; 99152; C1725; C1769; J1200; J1644; J3010; J7040; Q9967

== ENCOUNTER 2025-09-27 10:03 | Outpatient (CLI) | payer BC, SELFPAY ==
--- OUTSIDE RECORDS SUMMARY | 2025-09-27 10:08 | XMS_ITS | Data Portability ---
Author Organization [facility] ADMIN Address [address] [place] [id number] Assessment No assessment recorded. Plan of Treatment Reminders Order Date Submit Date Provider Last Modified By Organization Details Last Modified Time Details Appointments None recorded. Lab H pylori urea breath test, co2 infrared 2022 023 [facility] (Centralized Scheduling), [address], [place], [address], 15:11:00 Referral None recorded. Procedures None recorded. Surgeries None recorded. Imaging None recorded. Medication Orders None recorded. Patient TargetsNo targets recorded. Patient InstructionsNo instructions recorded. Reason for Referral None Reported. Results Created Date Observation Date Name Description Value Unit Range Abnormal Flag Note LastModifiedBy Organization Detail LastModifiedTime 05/16/20 23 05/17/2023 H PYLOR I BREAT H TEST hpylbrnr NEGATI VE negati ve Perfo rmed at: [facility] Lab[address], [place] [id number] [facility] Direc tor: Antonio leonard PhD, Phone : [phone] Not Available [facility] ([facility]) [address], [place], [address], 05/17/2023 15:11:00 Result Notes None recorded. Procedures Surgical History Date Name Laterality Status Provider Name and Address Organization Details Recorded Time Partial Hysterectomy completed Joseph HERNANDEZ [facility] & [place] 05/16/2023 09:55:40 [facility] & [place] 05/16/2023 09:55:46 section completed Joseph Graham [facility] 05/16/2023 09:56:04 Imaging Results None recorded. Procedure Notes None recorded. Medical Equipment None Reported. Allergies No known drug allergies Medications Name Sig Start Date Stop Date Status Note LastModified by Organization Details LastModified Time fluoxetine 10 mg tablet Take 1 tablet every day by oral route. active Not Available Not Available No t Available lisinopril 10 mg tablet Take 1 tablet every day by oral route. active Not Available Not Available No t Available Vitals Date Recorded Body weight Body mass index (BMI) Body height Body temperature Oxygen saturation Oxygen saturation in Arterial blood by Pulse oximetry Heart rate Systolic And Diastolic Provider Name and Address Organization Details Last Updated DateTime 3 599587. 21 g 40.3 kg/m2 162.56 cm 98.4 [degF] 98 % 98 % 81 /min 126/86 mm[Hg] Joseph Arcos [facility] 09:53:17 Social History Question Answer Notes LastModified by Organizat ion Details LastModified Time Tobacco Smoking Status Never Smoker Joseph faustin, [facility] 05/16/2023 09:55:20 What Is Your Level Of Caffeine Consumption? Heavy [email or web address] Information not available 05/16/2023 What Was The Date Of Your Most Recent Tobacco Screening? 05/16/2023 [email or web address] Information not available 05/16/2023 Sex: Unknown Functional Status Question Answer Note LastModified by Organization D etails LastModified Time What is your level of alcohol consumption? None [email or web address] Information not available 05/16/2023 Mental Status None recorded. Family History Nothing Reported. Medical History No medical history recorded. Gynecological HistoryNo gynecological history recorded. Obstetrics History GPAL:G 0 P 0 0 0 0 Past Encounters Encounter ID Performer Location Encounter Start Date Encounter Closed Date Diagnosis/Indication Diagnosis SNOMED-CT Code Diagnosis ICD10 Code Diagnosis IMO Codes Diagnosis Note [id number] Marjorie Duvall MD [facility] General Surgery [address] [facility],[address] [place] [phone] 05/16/2023 09:15:56 05/16/2023 10:28:44 Gastroesophageal reflux disease 709083908 K21.9 Abdominal pain 61851355 R10.9 Abdominal pain. On physical examinatio n and clinically , patient does not appear to have any hernia. I have viewed the CT imaging myself and do not see any ventral or inguinal hernias. Will check for H pylori and I have recommende d using MiraLax due to some fecal impaction. Should her symptoms persist, EGD would be a reasonable step. We did discuss risks and benefits of EGD including bleeding and damage to surroundin g structures . Patient will contact me if she is not improving. Health Concerns Section Related Observation LastModified by Organization Detai ls LastModified Time None Recorded Concern Status LastModified by Organization Details LastModified Time None Recorded Advance Directives Directive None Recorded Payers Insurance Date Sequence Insurance Name Policy Number Policy Nobles Covered Member ID Nobles Member ID Guarantor Name 05/16/2023 1 [place] [id number] Angelina Real [id number] Angelina Real 05/16/2023 1 *SELF PAY* Lalo harrisanthony Morenoalecia Notes Date Note Type Note Provider Name and Address Organization Details Recorded Time 05/16/2023 text/html 58-year-old woman referred for abdominal pain, presumed umbilical hernia. Patient states that she has had some upper abdominal pain which is predominantly crampy and typically postprandial, not related to food type. She does have some associated GERD. Patient is status post cholecystectomy. She does have some mild supraumbilical bulging, no relation of pain to physical activity. She was seen in the ER, had CT imaging which shows moderate stool in the colon and no evidence of hernia. Marjorie Duvall MD [address], [place], [phone], [facility] [place] & [place] 05/17/2023 11:24:41 OBGyn Episode No OBEpisode recorded.
--- NOTE | 2025-09-27 11:00 | MM_ITS ---
PROCEDURE INFORMATION: Exam: MG Bilateral Screening 3D Mammography Exam date and time: 09/27/2025 10:34 AM Age: 60 years old Clinical indication: Screening examination TECHNIQUE: Imaging protocol: Bilateral Screening tomosynthesis and 2D mammography including computer-aided detection (CAD) when performed. COMPARISON: 1. MG MM DIG MAMM DX UNILAT LT CAD 03/09/2025 9:30 AM 2. MG MM DIG MAMM DX UNILAT LT CAD 09/10/2024 1:05 PM FINDINGS: MAMMOGRAPHY: Breast composition: The breasts are almost entirely fatty. Mass: None. Architectural distortion: None. Calcifications: No suspicious calcifications. Asymmetric density: None. Skin thickening: None. Axillary adenopathy: None. IMPRESSION: No mammographic evidence of malignancy. Annual screening is recommended unless otherwise clinically indicated. ASSESSMENT: BI-RADS Category 1: Negative.
== END 2025-09-27 23:59 | disposition home or self-care (01) ==
LOC: RAD 10:04
PROVIDERS: PCP Nurse Practitioner Family; Visit Provider Nurse Practitioner Obstetrics & Gynecology
DX: Z12.31 Encounter for screening mammogram for malignant neoplasm of breast (principal)
CPT/HCPCS: 77063; 77067

== ENCOUNTER 2025-11-05 10:04 | Outpatient (CLI) | payer BC, SELFPAY ==
--- NOTE | 2025-11-05 10:07 | XR_ITS ---
FINAL REPORT CLINICAL HISTORY: injury from fall, PAIN COMPARISON: None FINDINGS: 2 views of the right forearm were obtained. There is no acute fracture or dislocation. The joints are intact. There are no soft tissue abnormalities. IMPRESSION: No acute process. Reviewed, Interpreted and Dictated by Yousuf Dimas MD Transcribed by Isabell Bautista Authenticated and [facility]
--- NOTE | 2025-11-05 10:07 | XR_ITS ---
FINAL REPORT CLINICAL HISTORY: right wrist injury, FALL, PAIN COMPARISON: None FINDINGS: RIGHT WRIST Three views demonstrate no acute fracture or dislocation. There are moderate hypertrophic changes of the basilar joint. Subchondral sclerosis and osteophyte formation is noted. The soft tissues are unremarkable. IMPRESSION: No acute bony abnormality. Reviewed, Interpreted and Dictated by Yousuf Dimas MD Transcribed by Isabell Bautista Authenticated and [facility]
== END 2025-11-05 23:59 | disposition home or self-care (01) ==
LOC: RAD 10:04
PROVIDERS: PCP Nurse Practitioner Family; Visit Provider Nurse Practitioner Family
DX: S69.91XA Unspecified injury of right wrist, hand and finger(s), initial encounter (principal); S59.911A Unspecified injury of right forearm, initial encounter; M19.031 Primary osteoarthritis, right wrist; W19.XXXA Unspecified fall, initial encounter
CPT/HCPCS: 73090; 73110